=== PATIENT | female | born 1950 | race Caucasian/White ===

== ENCOUNTER 2022-04-18 13:46 | Outpatient (CLI) | payer MEDICARE, SELFPAY ==
[2022-04-18 14:03] LABS: Basophils Absolute Auto 0.1 K/mm3 (0.0-0.1); Eosinophils Absolute Auto 0.2 K/mm3 (0-0.3); Eosinophils Percent Auto 3.7 % (0-4.4); Hematocrit 35.5 % (37.0-47.0); Hemoglobin 11.3 g/dL (12.0-15.0); Immature Granulocyte Absolute 0.01 K/mm3 (0.00-0.031); Immature Granulocyte Percent A 0.2 % (0-0.5); Lymphocytes Percent Auto 23.1 % (18.3-44.2); Mean Corpuscular HGB Conc 31.8 g/dl (32-36); Mean Corpuscular Hemoglobin 31.2 pg (26-34); Mean Corpuscular Volume 98.1 fl (80-100); Mean Platelet Volume 10.7 fl (7.4-10.4); Monocytes Absolute Auto 0.4 K/mm3 (0.1-0.6); Monocytes Percent Auto 8.3 % (2.6-8.5); Neutrophils Absolute Auto 3.3 K/mm3 (1.3-6.7); Neutrophils Percent Auto 63.7 % (45.5-73.1); Platelet Count Result 187 k/mm3 (150-375); Red Blood Count 3.62 M/mm3 (4.2-5.4); Red Cell Distribution Width 12.5 % (11.5-14.5); White Blood Count 5.2 K/mm3 (4.5-10.0)
[2022-04-18 17:03] LABS: Iron 58 ug/dL (37-170)
[2022-04-18 17:05] LABS: Percent Iron Saturation 17 % (20-50)
[2022-04-18 19:03] LABS: Alanine Aminotransferase 16 U/L (6-35); Albumin Level 4.2 g/dL (3.5-5.1); Alkaline Phosphatase 96 U/L (38-126); Anion Gap 6 mmol/L (8-16); Aspartate Amino Transferase 22 U/L (14-36); Bilirubin,Total 0.9 mg/dL (0.2-1.3); Blood Urea Nitrogen 26 mg/dL (7-17); Calcium 9.2 mg/dL (8.4-10.2); Carbon Dioxide 29 mmol/L (22-30); Chloride 106 mmol/L (98-107); Estimated Glomerular Filt Rate 41; Glucose 139 mg/dL (65-110); Potassium 4.3 mmol/L (3.4-5.0); Sodium 141 mmol/L (137-145)
[2022-04-18 20:08] LABS: Folic Acid 10.6 ng/mL (2.76->20)
[2022-04-21 13:39] LABS: Methylmalonic Acid 188 nmol/L (87-318)
== END 2022-04-18 13:47 | disposition home or self-care (01) ==
LOC: ANHLAB 13:48
PROVIDERS: PCP Family Medicine; Visit Provider Internal Medicine Hematology & Oncology
DX: D64.9 Anemia, unspecified (principal)
CPT/HCPCS: 36415; 80053; 82607; 82728; 82746; 83540; 83550; 83921; 85025

== ENCOUNTER 2022-05-11 10:04 | Outpatient (CLI) | payer MEDICARE, SELFPAY ==
[2022-05-15 18:42] LABS: Intrinsic Factor Blocking Ab Negative (Negative)
== END 2022-05-11 10:05 | disposition home or self-care (01) ==
LOC: ANHLAB 10:12
PROVIDERS: PCP Family Medicine; Visit Provider Internal Medicine Hematology & Oncology
DX: D64.9 Anemia, unspecified (principal)
CPT/HCPCS: 36415; 83516; 86340

== ENCOUNTER 2024-04-24 13:28 | Emergency (ER) | payer MEDICARE, SELFPAY ==
--- OUTSIDE RECORDS SUMMARY | 2024-04-24 13:33 | XMS_ITS | Continuity of Care Document ---
Author Organization [employer] [facility] Address [address] [facility] [address] [place] [address] Phone Care Team Providers Care Lumber Handler Name Role Phone Margaret Willingham OD Unavailable Unavailable Allergies, Adverse Reactions, Alerts Substance Reaction Status Criticality MEPERIDINE HCL Active No Informatio n Sulfa (Sulfonamide Antibiotics) Active No Information Penicillins Active No Information amoxicillin Active No Information Medications Medication Instructions Dosage Effective Dates (start - stop) Status Comments Lantus U-100 Insulin 100 unit/mL subcutaneous solution inject by subcutaneous route as per insulin protocol 0.00 - Active lisinopril 20 mg tablet take 1 tablet by oral route every day 20 MG - Active Farxiga 5 mg tablet take 1 tablet by oral route every day in the morning 5 MG - Active B12 5,000 mcg-100 mcg sublingual lozenge - Active amlodipine 10 mg tablet take 1 tablet by oral route every day 10 MG - Active leflunomide 20 mg tablet take 1 tablet b y oral route every day 20 MG - Active Synthroid 137 mcg tablet take 1 tablet b y oral route every day 137 MCG - Active Humalog KwikPen U-200 Insulin 200 unit/mL (3 mL) subcutaneous inject by subcutaneous route per prescriber's instructions. Insulin dosing requires individualization. 0.00 - Active Ozempic 0.25 mg or 0.5 mg (2 mg/1.5 mL) subcutaneous pen injector inject (0.25MG) by subcutaneous route every week for 4 weeks , then inject 0.5 mg subcutaneously once weekly for 2 weeks - Active solifenacin 5 mg tablet take 1 tablet by oral route 2 times every day 5 MG - Active sertraline 100 mg tablet take 1 tablet b y oral route every day 100 MG - Active Multi Vitamin BUCCAL CAPSULE take 1 capsule daily - Active Vitamin D3 25 mcg (1,000 unit) tablet take 1 by oral route 2 times every day 1 - Active Calcium 500 + D 500 mg (1,250 mg)-200 unit tablet take 1 by oral route every day 1 - Active iron ER 159 mg (45 mg iron) tablet,extended release take 1 tablet by oral route every week 1 tablet - Active Tylenol Arthritis Pain 650 mg tablet,extended release take 2 tablet by oral route as needed for pain - Active PreserVision AREDS-2 250 mg-200 unit-40 mg-1 mg capsule take 1 by oral route 2 times every day 1 - Active atorvastatin 40 mg tablet take 1 tablet by oral route every day 40 MG - Active Lyrica 50 mg capsule take 1 capsule by oral route 2 times every day 50 MG - No Longer Active propranolol 40 mg tablet take 1 tablet b y oral route 3 times every day 40 MG - No Longer Active hydrochlorothiazide 25 mg tablet take 1 tablet by oral route every 2 days 25 MG - No Longer Active alprazolam 0.5 mg tablet take 1 tablet b y oral route every day 0.5 MG - No Longer Active diclofenac sodium 75 mg tablet,delayed release take 2 by oral route every day 2 - No Longer Active dicyclomine 10 mg capsule take 1 capsule by oral route 3 times every day 10 MG - No Longer Active Humulin 70/30 U-100 Insulin KwikPen 100 unit/mL subcutaneous inject 1 unit by subcutaneous route every day as per insulin protocol 1 unit - No Longer Active Procedures Procedure Date Corneal Pachymetry Fundus Photography W/ Report No Charge Refraction Office/outpatient Visit, Est No Charge Optomap Fundus Photos 023 SCODI, Retina Eye Exam & Treatment Fundus Photography W/ Report Eye Exam & Treatment Fundus Photography W/ Report Eye Exam & Treatment Fundus Photography W/ Report Eye Exam & Treatment No Charge Refraction No Charge GDX Retina Fundus Photography W/ Report Eye Exam & Treatment Post-op Follow-up Visit No Charge GDX Retina No Charge Refraction Fundus Photography W/ Report After Cataract Laser Surgery Office/outpatient Visit, Est Fundus Photography W/ Report Refraction Eye Exam & Treatment No Charge Refraction Post-op Follow-up Visit Fundus Photography W/ Report No Charge Refraction After Cataract Laser Surgery Office/outpatient Visit, Est Fundus Photography W/ Report Office/outpatient Visit, Est No Charge Refraction Post-op Follow-up Visit Post-op Follow-up Visit Remove Cataract, Insert Lens No Charge Refraction Post-op Follow-up Visit Post-op Follow-up Visit Remove Cataract, Insert Lens No Charge Refraction Fundus Photography W/ Report IOLMaster No Charge Orbscan IOLMaster Eye Exam & Treatment Fundus Photography W/ Report Office/outpatient Visit, Est Refraction Fundus Photography W/ Report Eye Exam & Treatment Office/outpatient Visit, Est Fundus Photography W/ Report Eye Exam & Treatment Fundus Photography W/ Report Refraction Eye Exam & Treatment Fundus Photography W/ Report Eye Exam & Treatment Eye Exam & Treatment Fundus Photography W/ Report Refraction Eye Exam Established Pt Eye Exam & Treatment Fundus Photography W/ Report CL Replacement - Amrit Other 9 Post-op Follow-up Visit Contact Lens Fitting Eye Exam & Treatment Eye Exam & Treatment Fundus Photography W/ Report Advance Directives Directive Yes / No Effective Date File Name Other Directive No N/A N/A WARNING:The information contained in this section is historical and is provided for information only and does not constitute a legal document or any assurance that the information is still accurate. Please verify the information with the reyes of the legal document before using it for clinical purposes. Encounters Encounter Description Practice Location Reason(s) For Visit Diagnoses Date Provider Providers Copied on Encounter Office/outpa tient Visit, Est [facility], [id number] [address], [place], [place], [address], [place] tel:[phone] SEC Chad REYES Professional diabetic eye exam (chief complaint) Type 2 diab with mild nonp rtnop without macular edema, biPresence of intraocular lensEndothel ial corneal dystrophy of both eyes 9202 4 Maulik OD Margaret. [facility] [address], [address], [place], [place], [address], [place]. tel:[phone] Specialist: Mor Max, [address], [place], [address]. tel:[phone] alist: Summer Wilson MD, [address], [place], [address]. tel:[phone] ring Provider: Justice Rodgers, [address], [place], [address]. tel:[phone] [facility] [facility], [address] [address], [place], [place], [address], [place] tel:[phone] SEC Chad ERIC Professional Complete Exam (chief complaint) Type 2 diab with mild nonp rtnop without mclr edema, l eyeType 2 diab with mild nonp rtnop without mclr edema, r eyePresence of intraocular lens 3 Sahu Daryl. [address] [facility], [place], [place], [address], [place]. tel:[phone] Specialist: Trista Max MD, [address] [place], [address]. tel:[phone] alist: Summer Wilson MD, [address], [place], [address]. tel:[phone] Provider: Laura Crawford MD, [address], [place], [address]. tel:[phone] ring Provider: Justice Rodgers, [address], [place], [address]. tel:[phone] [facility], [address] [address], [place], [place], [address], [place] tel:[phone] SEC Van Tassellshannon Hidalgo Complete Exam (chief complaint) Type 2 diab with mild nonp rtnop without macular edema, biPresence of intraocular lens 2 Shane Rendon. [address], [address], [place], [place], [address], [place]. tel:[phone] Laura Crawford MD.Summer Wilson MD.Speciali st: Taylor Roberts DO, [address] [facility], [place], [address]. tel:[phone] Provider: Laura Crawford MD, [address], [place], [address]. tel:[phone] ring Provider: Justice Rodgers, [address] [place] [address] [facility] [address], [place], [address]. tel:[phone] [facility], [address] [place] [address] [address], [place], [place], [address], tel:[phone] SEC Pallavi N Lindbergh Complete Exam (chief complaint) Type 2 diab with mild nonp rtnop without macular edema, biPresence of intraocular lens Nov-1 2-202 1 Shane Rendon. [address] [place] [address] [facility], [address], [place], [place], [address], [place]. tel:[phone] Specialist: Laura Crawford MD, [address], [place], [address]. tel:[phone] alist: Summer Wilson MD, [facility] [address], [place], [address]. tel:[phone] Provider: Laura Crawford MD, [address], [place], [address]. tel:[phone] ring Provider: Justice Rodgers, [address] [place] [address] [address], [place], [address]. 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 [address] [place] [address], [address], [place], [place], [address], [place]. tel:[phone] Specialist: Laura Crawford MD, [address], [place], [address]. tel:[phone] alist: Summer Wilson MD, [address], [place], [address]. tel:[phone] Provider: Laura Crawford MD, [address], [place], [address]. tel:[phone] ring Provider: Justice Rodgers, [address] [place] [address] [address], [place], [address]. tel:[phone] [facility], [address] [place] [address] [address], [place], [place], [address], [place] tel:[phone] SEC Chad REYES Professional No Information 0 Luis Alberto Brito. [address] [facility], [address], [place], [place], [address], [place]. tel:[phone] Specialist: Laura Crawford MD, [address] [facility] [address], [place], [address]. tel:[phone] alist: Summer Wilson MD, [address], [place], [address]. tel:[phone] [facility], [address] [place] [address] [address], [place], [place], [address], [place] tel:[phone] SEC Chad REYES Professional Complete DM Exam (chief complaint) Type 2 diab with mild nonp rtnop with macular edema, l eyeType 2 diab with mild nonp rtnop without mclr edema, r eyeMeibomian gland dysfnct right eye, upper and lower eyelidsMeibo nikolai gland dysfnct left eye, upper and lower eyelidsPrese nce of intraocular lens 0 Shane Rendon. [address] [place] [address], [address], [place], [place], [address], [place]. tel:[phone] Laura Crawford MD.Speciali st: Taylor Roberts DO, [address] [facility], [place], [address]. tel:[phone] Provider: Laura Crawford MD, [address], [place], [address]. tel:[phone] ring Provider: Justice Rodgers, [facility] [address], [place], [address]. tel:[phone] [facility], [facility] [employer] [address], [place], [place], [address], [place] [phone] SEC Chad REYES Professional 3 week s/p YAG PC (chief complaint) Post-op cataract surgery right eye 9 Neil Blackmon. [facility], 6th Floor, [place], [address], [place]. tel:[phone] Referring Provider: Justice Rodgers, [facility] [address], [place], [address]. [phone] Office/outpa tient Visit, [facility] [employer] [address], [place], [place], [address], [place] [phone] SEC Chad REYES Professional PCF (chief complaint) Other secondary cataract, right eyePresence of intraocular lensType 2 diab with mild nonp rtnop without mclr edema, l eye 9 Shane Rendon. [facility] [address], [address], [place], [place], [address], [place]. tel:[phone] Laura Crawford MD.Speciali st: Taylor Roberts DO, [address], [place], [address]. tel:[phone] ring Provider: Justice Rodgers, [facility] [address], [place], [address]. tel:[phone] [facility], [facility] [employer] [address], [place], [place], [address], [place] [phone] SEC Chad REYES Professional Diabetic eye exam (chief complaint) Type 2 diab with mild nonp rtnop without mclr edema, l eyeOther secondary cataract, right eyePresence of intraocular lens 9 Shane Rendon. [facility] [address], [address], [place], [place], [address], . tel:[phone] Specialist: Laura Crawford MD, [address], [place], [address]. tel:[phone] Provider: Laura Crawford MD, [address], [place], [address]. tel:[phone] ring Provider: Justice Rodgers, [facility] [address], [place], [address]. tel:[phone] [facility], [facility] [address], [place], [place], [address], tel:[phone] SEC Chad REYES Professional Post-Op (chief complaint) Surgery follow-up examination 8 Luis Alberto Brito. [address] [facility], [address], [place], [place], [address], [place]. tel:[phone] Referring Provider: Justice Rodgers, [facility] [address] [facility] [address], [place], [address]. tel:[phone] Office/outpa tient Visit, Est [facility], [facility] [address], [place], [place], [address], [place] tel:[phone] HOMA REYES Professional Blurry/decre ased vision (chief complaint) Other secondary cataract, left eyePresence of intraocular lensType 2 diab with mild nonp rtnop without macular edema, bi 8 Shane Rendon. [facility] [address] [facility], [address], [place], [place], [address], . tel:[phone] Other Provider: Laura Crawford MD, [address], [place], [address]. tel:[phone] ring Provider: Justice Rodgers, [facility] [address], [place], [address]. tel:[phone] [facility], [address] [address], [place], [place], [address], [place] [phone] SEC Chad REYES Professional No Information May-0 8 Shane Rendon. [facility] [address], [address], [place], [place], [address], [place]. tel:[phone] Office/outpa tient Visit, [facility] [address], [place], [place], [address], [place] tel:[phone] SEC Pallavi Landeros 6 month DFE (chief complaint) Type 2 diab with mild nonp rtnop without macular edema, biOther secondary cataract, left eye Dec- 7 Shane Rendon. [facility] [address], [address], [place], [place], [address], [place]. tel:[phone] Other Provider: Laura Crawford MD, [address], [place], [address]. tel:[phone] ring Provider: Justice Rodgers, [facility] [address], [place], [address]. tel:[phone] [facility], [facility] [employer] [address], [place], [place], [address], [place] tel:[phone] SEC Pallavi Landeros 2 wk PC IOL PO (chief complaint) Post-op cataract surgery left eye Trey- 7 Flaquita Huber. [address] [facility], [address], [place], [place], [address], [place]. tel:[phone] Referring Provider: Justice Rodgers, [facility] [address], [place], [address]. tel:[phone] [facility], [address] [place] [address] [address], [place], [place], [address], tel:[phone] SEC Van Tassell N Lindbergh 1 day PO (chief complaint) No Information Aug-0 7 Sams Mayo. [address] [facility], [address], [place], [place], [address], . tel:[phone] Referring Provider: Justice Rodgers, [address] [place] [address] [facility] [address], [place], [address]. tel:[phone] [facility], [address] [place] [address] [address], [place], [place], [address], tel:[phone] [facility] No Information 0 7 Shane Rendon. [address] [place] [address] [facility], [address], [place], [place], [address], . tel:[phone] Referring Provider: Justice Rodgers, [address] [place] [address] [facility] [address], [place], [address]. [phone] [facility], [address] [place] [address] [address], [place], [place], [address], [phone] SEC Pallavi N Anglebergh 2 wk PC IOL PO (chief complaint) No Information 7 Sams Mayo. [address] [facility], [address], [place], [place], [address], . tel:[phone] Referring Provider: Justice Rodgers, [address] [place] [address] [facility] [address], [place], [address]. tel:[phone] [facility], [address] [place] [address] [address], [place], [place], [address], [phone] SEC Van Tassell N Lindbergh F/u exam, postop (chief complaint) No Information 7 Sams Mayo. [address] [facility], [address], [place], [place], [address], [place]. tel:[phone] Referring Provider: Justice Rodgers, [facility] [employer] [address], [place], [address]. [phone] [facility], [address] [place] [address] [address], [place], [place], [address], [place] tel:[phone] [facility] No Information 7 Shane Rendon. [facility] [employer], [address], [place], [place], [address], [place]. tel:[phone] Referring Provider: Justice Rodgers, [facility] [address], [place], [address]. [phone] [facility], [address] [place] [address] [address], [place], [place], [address], [place] tel:[phone] SEC Pallavi Landeros Complete Exam (chief complaint) No Information 0 7 Shane Rendon. [facility] [address], [address], [place], [place], [address], [place]. tel:[phone] Other Provider: Laura Crawford MD, [address], [place], [address]. tel:[phone] ring Provider: Justice Rodgers, [facility] [address], [place], [address]. [phone] Office/outpa tient Visit, Est [facility], [facility] [address], [place], [place], [address], [place] [phone] SEC Pallavi Landeros SANDWICH ARTIST check OU (chief complaint) No Information 0-201 6 Shane Rendon. [facility] [employer], [address], [place], [place], [address], [place]. tel:[phone] Other Provider: Laura Crawford MD, [address] [facility] [address], [place], [address]. tel:[phone] ring Provider: Justice Rodgers, [facility] [address], [place], [address]. [phone] [employer] [facility], [facility] [employer] [address], [place], [place], [address], [place] [phone] SEC Pallavi Landeros Yearly-Diabe tic (chief complaint) No Information Apr-0 4-201 6 Shane Rendon. [facility] [address], [address], [place], [place], [address], [place]. tel:[phone] Specialist: Taylor Roberts DO, [address] [facility], [place], [address]. tel:[phone] ring Provider: Justice Rodgers, [facility] [address], [place], [address]. [phone] Office/outpa tient Visit, [facility] [employer] [facility], [facility] [address], [place], [place], [address], [place] [phone] SEC Pallavi Landeros Difficulty reading (chief complaint) No Information Mar-3 0-201 5 Shane Rendon. [facility] [address], [address], [place], [place], [address], [place]. tel:[phone] Referring Provider: Justice Rodgers, [facility] [address], [place], [address]. [phone] [employer] [facility], [facility] [address], [place], [place], [address], [place] tel:[phone] SEC Pallavi Landeros Annual Diabetic Exam (chief complaint) No Information Sep-2 9-201 4 Shane Rendon. [facility] [address], [address], [place], [place], [address], [place]. tel:[phone] Referring Provider: Justice Rodgers, [facility] [address], [place], [address]. tel:[phone] [facility], [address] [place] [address] [address], [place], [place], [address], [place] [phone] SEC Pallavi N Lindbergh eyes doing well, without complaint. (chief complaint) No Information 3 Shane Rendon. [facility] [address], [address], [place], [place], [address], [place]. tel:[phone] Referring Provider: Justice Rodgers, [facility] [address], [place], [address]. [phone] [employer] [facility], [facility] [employer] [address], [place], [place], [address], tel:[phone] SEC Van Tassell N Lindbergh Diabetes Examination (chief complaint) No Information 2201 2 Shane Rendon. [facility] [address], [address], [place], [place], [address], [place]. tel:[phone] [employer] [facility], [address] [address], [place], [place], [address], [place] tel:[phone] SEC Van Tassell N Lindbergh No Information 0-201 1 Shane Rendon. [facility] [address], [address], [place], [place], [address], [place]. tel:[phone] [facility], [facility] [employer] [address], [place], [place], [address], [place] tel:[phone] SEC Pallavi N Lindbergh No Information 3-201 1 Shane Rendon. [facility] [address], [address], [place], [place], [address], [place]. tel:[phone] Referring Provider: Justice Rodgers, [address], [place], [address]. tel:[phone] [facility], [address], [place], [place], [address], [place] tel:[phone] SEC Pallavi N Lindbergh No Information 0 Shane Rendon. [address], [address], [place], [place], [address], [place]. tel:[phone] [facility], [address], [place], [place], [address], [place] tel:[phone] SEC Pallavi N Lindbergh No Information 9 Shane Rendon. [address], [address], [place], [place], [address], [place]. tel:[phone] Referring Provider: Justice Rodgers, [address] [place] [address], [place], [address]. tel:[phone] [facility], [address], [place], [place], [address], [place] tel:[phone] SEC Van Tassell N Lindbergh No Information 9 [facility] . [address] [facility], [address] [place] [address], [id number], . tel:[phone] Referring Provider: Mayo Sweeney, [address] [facility] [address], [place], [address]. tel:[phone] lting Provider: Shannan Jewell, [address] [facility], [place], [address]. tel:[phone] [facility], [address], [place], [place], [id number], [place] [phone] SEC Pallavi N [place] No Information 9 Flaquita Huber. [address] [facility], [address], [place], [place], [id number], . tel:[phone] [facility], [address], [place], [place], [id number], tel:[phone] SEC [place] No Information 9 Flaquita Huber. [address] [facility], [address], [place], [place], [id number], . tel:[phone] [facility], [address] [place] [address] [address], [place], [place], [id number], tel:[phone] SEC [place] No Information 8 Shane Rendon. [address] [place] [address] [facility], [address], [place], [place], [id number], . tel:[phone] [facility], [address], [place], [place], [id number], tel:[phone] SEC Pallavi N [place] No Information 7 Shane Rendon. [address] [place] [address] [facility], [address], [place], [place], [address], . tel:[phone] Referring Provider: Justice Rodgers, [address] [place] [address] [facility] [address], [place], [address]. [phone] Family History Family Member Type Diagnosis Age At Onset Father Problem (finding) diabetes melli tus in first degree relative Problem (finding) Mother Problem (finding) Retinal Disease Payers Payer name Insurance type Covered constitution party ID Authoriza tipoonam(s) Medicare [facility] SAULT [id number] [facility] CI [id number] Social History Type Description Quantity Date Captured Comments Alcohol Use Details Caffeine Use Details > 32oz per day Tobacco Use Status Current non-smoker Smoking Status Never smoker Non-Smoking Tobacco Use Details : No Details Available : No Details Available Sex Female Chief Complaint And Reason For Visit From encounter dated '09/10/2023 15:00'. diabetic eye exam (chief complaint). Description: The 72 year old patient presents for evaluation of diabetic eye exam in the right eye and left eye. Pt is IDDM II followed by Dr. Max. Pt 's last HA1C was 6.2. Pt. states she notices blurry spot in Left eye that does not seem to move. Pt. also has lots of floaters. Pt. does not have a PCP and is in process of looking for one. Pt. states no ocular discomfort. Reason For Referral Reason For Referral No Information Plan Of Treatment Date Type Action Status Patient Education Type 2 Diabetes: Care I nstructions completed Patient Education Type 2 Diabetes: Care I nstructions completed Patient Education Type 2 Diabetes: Care I nstructions completed Patient Education Diabetic Retinopathy: C are Instructio~ completed Patient Education Learning About YAG Lase r Capsulotomy completed History Of Present Illness Encounter Date Complaint History Of Prese nt Illness diabetic eye exam The 72 year ol d patient presents for evaluation of diabetic eye exam in the right eye and left eye. Pt is IDDM II followed by Dr. Max. Pt 's last HA1C was 6.2. Pt. states she notices blurry spot in Left eye that does not seem to move. Pt. also has lots of floaters. Pt. does not have a PCP and is in process of looking for one. Pt. states no ocular discomfort. Complete Exam The 71 year old patient presents for evaluation of Complete Exam in the right eye and left eye. Patient states she has a FBS sensation in her left eye. Patient is a diab, BS checked today @ 150, a1c 5.5, and Dr. Bennett treats her diab. Complete Exam The 71 year old patient presents for evaluation of Complete Exam in the right eye and left eye. Pt states no changes or complaints with OU, vision is stable. Pt is IDDM II with a BS today of 95, and A1C 6 months ago of 6.2, managed by porter Crawford. Pt is not taking gtts currently. Complete Exam The 70 year old female presents for evaluation of Complete Exam in the right eye and left eye. Hx of PC IOL OU, YAG PC OU, DR OU and MGD OU. Pt reports vision is stable distance and near sine last visit. Pt states she has occasional floaters, no changes. Wears +2.50 OTC readers. IDDM Type II BS 155 this am A1c 6.2 4-5 mo ago, followed by Dr. Crawford. Pt takes PreserVision 1 PO BID. Complete Exam The 69 year old female presents for evaluation of Complete Exam in the right eye and left eye. Hx of PC IOL OU, Yag PC OU, and DR OU. Pt is IDDM II with and A1c of7.1. Pt states vision is clear and stable OU at distance and near x 10 mos. Complete DM Exam The 68 year old female presents for evaluation of Complete DM Exam in the right eye and left eye. Hx PCIOL OU s/p Yag PC OU, NPDR OU. DM2, last A1c 6.8, last tested 4-5 months ago, BS 200 as of this morning, followed by Dr. Crawford. Pt reports foggy vision OS, like she needs a Yag PC again. She had Yag PC OS in 07/2017. Pt reports glare while driving at night. Pt reports just using OTC readers for near. 3 week s/p YAG PC The 67 year ol d female presents for evaluation of 3 week s/p YAG PC in the right eye. Patient states VA is much clearer since the laser. Patient declines an rx for glasses. PCF The 67 year old female presents for evaluation of PCF in the right eye. Hx of PCIOL OU, mild DR OU, PCF OD, and YAG PC OS. Pt is IDDM II with an A1c of 7.2. Pt states VA blurry, like looking through a fog, having to get closer to street signs to see them clearly, difficult to see TV, and it's difficult to see small print. DVA and NVA gradual decrease OD x 4 mos. Diabetic eye exam The 67 year ol d female presents for evaluation of Diabetic eye exam in the right eye and left eye. Hx of PCIOL OU, mild diab retinopathy OU, and YAG PC OS. Patient states she still has some blurry VA in the left eye. Patient is a Type 2 diab since 1994, Insulin dependant for 5 years, BS checked this am @ 78, A1c 6.3, and Dr. Crawford treats her diab. Patient taking AREDS 2 prescribed by pcp. Post-Op The 66 year old female presents for a 1 week post YAG PC OS. Patient states vision is better OS and c/o a floater OS. Blurry/decreased vision The 66 y ear old female presents for a YAG PC evaluation OS. Patient c/o blurry/decreased OS x 2 months. Patient states vision OS just isn't as good. Patient is a Type II diabetic and BS was 233 this am. 6 month DFE The 66 year old female presents for 6 month DFE in the right eye and left eye. Hx of PCIOL OU, mild NPDR. Pt is IDDM type II, BSL 112 this morning, A1C is unknown, Enrolled Nurse is Dr. Crawford. Pt would like notes sent to PCP as well. Pt states her distance vision OU seems to be doing okay, intermittent blurriness when eyes are dry, AT's help, wears OTC for reading. Pt uses Systane PRN OU. 2 wk PC IOL PO The 65 year old female presents for 2 wk PC IOL PO in the left eye. Pt using PF1% OS bid and Diclo OS tid. Pt states no VA, pain, or discomfort complaints OU x 2 wks. 1 day PO The 65 year old female presents for 1 day PO PCIOL in the left eye. Hx PCIOL OD. Pt states her vision is doing fine, no pain/discomfort. PT using Pred QID OS, Poly OS QID, Diclo TID OS. Pt given and understands PO instructions. 2 wk PC IOL PO The 65 year old female presents for 2 wk PC IOL PO in the right eye. Pt is IDDM II with and A1c of 6.5. Pt using PF1% bid, and Diclo tid. Pt states DV is very good, has had to purchase OTC readers for up close. Pt states difficult to drive at night due to headlight glare, difficult to see TV, and difficult to see small print. DV and NV gradual decrease OS x 7 mos. F/u exam, postop 1 day PO PCL OD , doing well, no pain.Patient instructed to use Poly and Pred qid OD and diclofenac tid OD. Complete Exam The 65 year old female presents for Complete Exam in the right eye and left eye. HX Cataracts OU, Diabetic Retinopathy, DMII ID, last BSL/A1C 6.5. Pt states her vision has decreased since last visit. Glare is very bothersome and she has difficulty driving due to her vision. She also has difficulty driving on rainy days. Pt denies using any eye drops. PT denies pain/discomfort. SANDWICH ARTIST check OU The 65 year old female presents for a 6 month SANDWICH ARTIST check OU, patient is type 2 diabetic, is insulin dependant. Patient denies any pain or discomfort at this time. States v/a is stable, no gtts are used at this time.Dr. Laura Crawford is pt's Enrolled Nurse.Address: [facility] [address] [place], [place] [address]Mozfp: Yearly-Diabetic The 64 year old female presents for yearly Diabetic Eye Exam. Patient has a history of Diabetes Type 2 with SANDWICH ARTIST, and Cataracts OU. Patient states her vision is about the same. Patient says she hasn't noticed any new changes or complaints.Patient wants a new prescription for glasses. Patient denies using any eye drops daily. Patient says her BS this morning was 145 and her last A1C was 6.7% a month ago. Patient has been a diabetic for 22 years. Patient is IDDM. Difficulty reading Patient prese nts for a 6 month diabetic check. Patient denies any changes in vision. Patient now uses a CPAP machine. BS was 145 this am and last A1C 5.7 2 months ago. Annual Diabetic Exam The 63 year old female presents for Annual Diabetic Exam. Patient states her and her new Enrolled Nurse Laura Crawford M.D. are trying to get her Diabetes under better control. Patient states that her vision seems pretty stable, but thinks it may be time for new glasses. Patient denies the use of eye drops.New Enrolled Nurse Address: [facility] [address], [address] [place], [place]. [address]Pvcya: [phone] / Functional Status Date Functional Assessmen t No Information Instructions Date Instruction Additional Infor christian Impression/Plan Impression/Plan Impression/Plan Impression/Plan Impression/Plan Impression/Plan 6mo complete or sooner prn Relat ed to Post-op cataract surgery right eye Impression/Plan Related to Post- op cataract surgery right eye Impression/Plan Impression/Plan Impression/Plan Impression/Plan Follow up - 6 months pcf eval/bd r check Impression/Plan - Di abetes type II: mild background diabetic retinopathy, no signs of neovascularization noted. No treatment necessary at this time. Patient was instructed to monitor vision for sudden changes and to call if visual changes noted. Discussed ocular and systemic benefits of blood sugar control. Letter generated and sent to Dr. Roberts and Dr. Crawford. PCF discussed along with signs/symptoms of progression explained and YAG PC for treatment. Pt aware treatment is not indicated at this time, but rec returning sooner if vision worsens. Repeat optomap on return visit. Type 2 diab with mil d nonp rtnop without macular edema, bi - Communication to PCP/Specialist Related to Type 2 diab with mild nonp rtnop without macular edema, bi Post-op cataract ritesh bridger left eye - Medication use reviewed Related to Post-op cataract surgery left eye Post-op cataract ritesh bridger left eye - Post op instructions reviewed and understood by patient Related to Post-op cataract surgery left eye Impression/Plan - Co ntinue tapering drops as instructed.Discussed PCF and YAG PC. Return in 6 months DFE. Related to Post-op cataract surgery left eye Impression/Plan - Po st-op instructions given. Instructed to begin Poly trim and Prednisolone qid and diclofenac tid in operative eye today.Return in 2 weeks. Related to Post-op cataract surgery left eye Post-op cataract ritesh bridger left eye - Post op instructions reviewed and understood by patient Related to Post-op cataract surgery left eye Post-op cataract ritesh bridger left eye - Medication use reviewed Related to Post-op cataract surgery left eye Impression/Plan - Gi ovidio samples of Blink drops.Continue tapering drops as scheduled. Schedule Left eye for cataract surgery. Post-op cataract ritesh bridger right eye - Post op instructions reviewed and understood by patient Related to Post-op cataract surgery right eye Post-op cataract ritesh bridger right eye - Medication use reviewed Related to Post-op cataract surgery right eye Post-op cataract ritesh bridger right eye - Medication use reviewed Related to Post-op cataract surgery right eye Post-op cataract ritesh bridger right eye - Post op instructions reviewed and understood by patient Related to Post-op cataract surgery right eye Impression/Plan - Ca taract presence is the cause of the patients visual complaints and progression without treatment discussed. Discussed all risks, benefits, procedures and recovery. Vision will not significantly improve with a change in glasses and we recommend not changing. The patient understands this is an elective procedure and may proceed when desired. The patients questions were answered and demonstrates understanding of our discussion. Patient desires to have surgery, recommend phacoemulsification with intraocular lens. Standard monofocal IOL understood and the need for specs for at least near vision following surgery is understood. Explained the accuracy and effectiveness of any lens implant cannot be guaranteed. IOL master, Pentacam and cataract questionnaire needed prior to scheduling. Diabetes type II: mild background diabetic retinopathy, no signs of neovascularization noted. No treatment necessary at this time. Patient was instructed to monitor vision for sudden changes and to call if visual changes noted. Discussed ocular and systemic benefits of blood sugar control. Letter generated and sent to Dr. Roberts and Dr Crawford. She is currently working with her doctors regarding her BP, Potassium levels and DM+ Sulfa allergy Combined forms of ag e-related cataract, right eye - Surgery advised; risks, benefits, alternatives discussed. Related to Combined forms of age-related cataract, right eye Follow up - sched ce od 1st standard monofocal Oct-10-2016 Type 2 diab with mil d nonp rtnop without macular edema, bi - Rec good blood sugar control Related to Type 2 diab with mild nonp rtnop without macular edema, bi Type 2 diab with mil d nonp rtnop without macular edema, bi - Letter sent to PCP/Specialist Related to Type 2 diab with mild nonp rtnop without macular edema, bi Impression/Plan - Di abetes type II: mild background diabetic retinopathy, no signs of neovascularization noted. No treatment necessary at this time. Patient was instructed to monitor vision for sudden changes and to call if visual changes noted. Discussed ocular and systemic benefits of blood sugar control. Discussed visual fluctuations associated with uncontrolled blood sugars. Letter generated and sent to Dr. Roberts and Dr. Crawford. She states her blood sugars has been uncontrolled. Cataract presence discussed and symptoms of progression explained, not visually significant to patient. Pt was instructed to return to the office sooner if vision worsens. Pt needs BAT and BCVA on return prior to dilation. Follow up - 6 months complete exam/ SANDWICH ARTIST check Impression/Plan - Di abetes type II: mild background diabetic retinopathy, no signs of neovascularization noted. No treatment necessary at this time. Patient was instructed to monitor vision for sudden changes and to call if visual changes noted. Discussed ocular and systemic benefits of blood sugar control. Explained if this progresses referral to [place] would be recommended. Letter generated and sent to Dr. Roberts and Dr. Crawford. Spec Rx given to pt. Follow up - 6 months SANDWICH ARTIST follow up Type 2 diab w mild n onprlf diabetic rtnop w/o macular edema - Letter sent to PCP/Specialist Related to Type 2 diab w mild nonprlf diabetic rtnop w/o macular edema - 1 yr complete exam cat check/SANDWICH ARTIST follow up Related to See list of assessments above - OU: Discussed diag nosis in detail with patient. No treatment is required at this time. Will continue to observe condition and or symptoms. Call if VA worsens. Emphasized blood sugar control. Letter generated and sent to Dr. Crawford. Related to See list of assessments above Diabetes (high blood sugar disease) affecting the eye - Communication to PCP/Specialist today Related to Diabetes (high blood sugar disease) affecting the eye - 6 months follow up with repeat optomap Related to See list of assessments above - OU: Discussed diag nosis in detail with patient. No treatment is required at this time. Will continue to observe condition and or symptoms. Call if VA worsens. Emphasized blood sugar control. Educational materials provided:about today's exam. Letter dictated to Dr. Crawford. Discussed cataract progression and will monitor. Related to See list of assessments above Cataract, Nuclear Sc lerosis, OU - established, stable - will continue to monitor - discussed progression with pt, monitor Related to Cataract, Nuclear Sclerosis - 6 months dm check Related to B ackground Diabetic Retinopathy Background Diabetic Retinopathy, OS, c/w NPDR, worsening from last visit, suspicious area of neovascularization at the edge of the ON, lower temporal quadrant, No NPDR OD - Discussed progression with pt. Pt understands the importance of good blood sugar and blood pressure control. [facility] Roberts, Related to Background Diabetic Retinopathy - 1 year complete DM exam Relate d to Diabetes Type II Diabetes Type II, do t hemorrages OS- Will monitor - Discussed with pt. No treatment at this time. will monitor Related to Diabetes Type II Cataract, Nuclear Sc lerosis, OU - vision not affected - will continue to monitor - Cataracts accounts for pt's complaints. No treatment currently recommended, patient will monitor vision changes and contact us with any decrease in vision. pt understands cat very small Related to Cataract, Nuclear Sclerosis Assessments Type Assessment Date assessment Type 2 diab with mild nonp rtnop without macular edema, bi assessment Presence of intraocular lens Sep assessment Endothelial corneal dystrophy of both eyes Patient Care Teams Name Effective Dates (start - stop) Status Members No Information
[2024-04-24 13:36] VITALS: BP 153/50; PULSE 91; RESP 20; TEMP 37.3; O2SAT 96
--- OUTSIDE RECORDS SUMMARY | 2024-04-24 13:36 | XMS_ITS | Referral Summary ---
Author Organization [facility] Address [address] [place] [address] Care Team Providers Care Ceramist Name Role Phone Booker Roberts DO Primary Care Provider Liam Clifford DO Unavailable Edwar Donovan MD Unavailable [phone] Source Comments [facility],non-owned Affiliates and Associated Physician Practices is amultiple site organization consisting of ambulatory clinics and hospital sitesin [place], [place], [place] and [place]. This disclosure is being madepursuant to the Care Everywhere program and may not contain all information available regarding this patient. Last updated 17.[facility] Allergies Active Allergy Reactions Criticality Noted Date Comments Meperidine 02/10/2014 Penicillins 02/04/2014 Sulfa Drugs 02/04/2014 Medications * Be aware that medications may not be up to date on this document. Alwaysverify current medications with the patient. Medication Sig Dispensed Refills Start Date End Date Status Insulin Isophane & Regular (HUMULIN 70/30 SC) Inject subcutaneously. Ac tive metformin ER 24hr (GLUCOPHAGE XR) 500MG tablet Take 500 mg by mouth daily with dinner. Active LORAZEPAM PO Take 1 mg by mouth at bedtime. Active cyanocobalamin (VITAMIN B-12) injection Inject 1,000 mg into muscle every 7 days. Active ferrous sulfate 325 (65 FE) MG tablet Take 325 mg by mouth daily with breakfast. Active magnesium 500 MG TABS tablet Take 500 mg by mouth once daily. Active multivitamin daily (THERAGRAN) tablet Take 1 Tab by mouth daily with food. Active vitamin D, cholecalciferol, 2000 UNITS tablet Take 2,000 Units by mouth once daily. Active ONETOUCH ULTRA TEST STRIPS test strip 05/19/2014 Active simvastatin (ZOCOR) 80 MG tablet 04/05/2014 Active Insulin Aspart (NOVOLOG PENFILL SC) Inject 2 Units subcutaneously Active Phendimetrazine Tartrate 105 MG CP24 Take 105 mg by mouth Acti ve TRULICITY 1.5 MG/0.5ML injection 1.5 mg every 7 days 10/09/2015 Active HUMULIN N KWIKPEN pen 09/19/2015 Active levothyroxine (SYNTHROID) 125 MCG tablet Take 1 Tab by mouth once daily 09/09/2015 Active escitalopram (LEXAPRO) 20 MG tablet Take 30 mg by mouth once daily 09/09/2015 Active omeprazole (PRILOSEC) 40 MG capsule Take 1 Cap by mouth 2 times daily 09/26/2015 Active hyoscyamine CR 12hr (LEVBID) 0.375 MG tablet Take 0.375 mg by mouth 2 times daily Active dicyclomine (BENTYL) 10 MG capsule Take 10 mg by mouth 4 times daily Active losartan (COZAAR) 50 MG tablet Take 50 mg by mouth once daily Active diclofenac sodium XR 24hr (VOLTAREN XR) 100 MG tablet Take 100 mg by mouth every Saturday, Saturday & Saturday Active oxybutynin (DITROPAN) 5 MG tablet Take 5 mg by mouth 3 times daily Active propranolol (INDERAL) 40 MG tablet Take 40 mg by mouth every 24 hours Active Active Problems Problem Noted Date Diagnosed Date Pulmonary infiltrate present on computed tomogra phy 12/24/2015 Restrictive lung disease 12/08/2015 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 Chronic cough 12/07/2015 Gastroesophageal reflux disease without esophagi tis 12/07/2015 Type 2 diabetes mellitus wit h other diabetic kidney complication 11/16/2015 Morbid (severe) obesity due to excess calories 1 Right shoulder tendonitis 11/01/2014 Follow-up examination, follo wing right AC reconstruction on 02-23-14 03/02/2014 Acromioclavicular joint arthritis 02/10/2014 Obstructive sleep apnea 01/07/2014 Myelodysplastic syndrome 10/28/2008 Other vitamin B12 deficiency anemia 10/28/2008 Overview (06/02/2016): IMO Update 06/02/2016 Social History Tobacco Use Types Packs/Day Years Used Date Smoking Tobacco: Never Smokeless Tobacco: Never Alcohol Use Standard Drinks/Week Comments No 0 (1 standard drink = 0.6 oz pur e alcohol) social Sex and Gender Information Value Date Recorded Sex Assigned at Not on file Gender Identity Not on file Sexual Orientation Not on file Last Filed Vital Signs Vital Sign Reading Time Taken Comments Blood Pressure 152/65 12/26/2015 11:34 AM CDT Pulse 62 12/26/2015 11:34 AM CDT Temperature 36.4 C (97.5 F) 12/26/2015 11:34 AM CDT Respiratory Rate 18 12/26/2015 11:34 AM CDT Oxygen Saturation 98% 12/26/2015 11:34 AM CDT Inhaled Oxygen Concentration 21% 12/26/2015 1 1:34 AM CDT roomair Weight 130.2 kg (287 lb) 12/26/2015 11:34 AM CDT Height 172.7 cm (5' 8 ) 12/26/2015 11:34 AM CDT Body Mass Index 43.64 12/26/2015 11:34 AM CDT Plan of Treatment Not on file Administered Medications Care Teams Ceramist Relationship Specialty Start Date End Date Booker Roberts DO [facility] [address] [address] PCP - General 01/20/09 Liam Clifford DO [facility] [address] [place] [address] Orthopedic Surgery 02/04/14 [place] [id number] [address] Pulmonary Disease 12/08/15
--- OUTSIDE RECORDS SUMMARY | 2024-04-24 13:36 | XMS_ITS | Encounter Summary ---
Author Organization [facility] Address [address] [place] [address] Care Team Providers Care Cryptographic Clerk Name Role Phone Booker Roberts DO Primary Care Provider Liam Clifford DO Unavailable Edwar Donovan MD Unavailable [phone] Encounter Details Date Type Department Care Team (Late st Contact Info) Description 04/07/2014 Therapy Visit EXTERNAL NON-[facility] DEPT Unknown, Provider Social History Tobacco Use Types Packs/Day Years Used Date Smoking Tobacco: Never Alcohol Use Standard Drinks/Week Comments No 0 (1 standard drink = 0.6 oz pur e alcohol) social Sex and Gender Information Value Date Recorded Sex Assigned at Not on file Gender Identity Not on file Sexual Orientation Not on file documented as of this encounter Plan of Treatment Not on file documented as of this encounter Visit Diagnoses Not on filedocumented in this encounter Care Teams Cryptographic Clerk Relationship Specialty Start Date End Date Booker Roberts DO [address] [place] [address] PCP - General 01/20/09 Liam Clifford DO [address] [place] [address] Orthopedic Surgery 02/04/14 [place] [address] [facility] [address] [place] [address] Pulmonary Disease 12/08/15 documented as of this encounter
--- OUTSIDE RECORDS SUMMARY | 2024-04-24 13:36 | XMS_ITS | Referral Summary ---
Author Organization [facility] Address [address] [place] [address] Care Team Providers Care Research And Development Chemist Name Role Phone Taylor Roberts DO Primary Care Provider [phone] Allergies Active Allergy Reactions Criticality Noted Date Comments Amoxicillin-Pot Clavulanate Hives,Rash Medium 08/27/19 09 Cefuroxime Axetil Itching,Other (See comments) Low 05/15/2017 Red hands Meperidine Unknown 02/10/2014 Penicillins Sulfa (Sulfonamide Antibiotics) Rash Medium 08/26/2008 Sulfanilamide Medications ALPRAZolam (XANAX) 0.25 mg tablet 0 8 Active amLODIPine (NORVASC) 5 mg tablet TAKE 1 TABLET BY MOUTH EVERY DAY 8 Active atorvastatin (LIPITOR) 40 mg tablet TAKE 1 TABLET LATE IN THE DAY 8 Active blood glucose diagnostic strip Checks 4 times daily. 7 Active calcium carbonate-vitam in D3 (CALTRATE 600 + D) 1500 mg (600 mg elemental) -400 units per tablet Take 600 mg by mouth. Active cholecalciferol (VITAMIN D-3) 1,000 unit tablet Take 1,000 Units by mouth. Active cyanocobalamin (Vitamin B-12) 1,000 mcg/mL injection Inject 1,000 mcg into the muscle as instructed once a week. Active DESVENLAFAXINE ER 50 mg 24 hr tablet 8 Active pen needle, diabetic 32 gauge x /32 needle 1 each. 7 Active multivitamin,tx -minerals (VITAMINS AND MINERALS) tablet Take 1 tablet by mouth. Active dulaglutide (TRULICITY) 1.5 mg/0.5 mL pen injector INJECT 1.5 MG UNDER THE SKIN EVERY WEEK 8 Active acetaminophen (TYLENOL) 325 mg tablet Take 650 mg by mouth every 6 (six) hours as needed for pain. Active leflunomide (ARAVA) 20 mg tabletIndicatio ns:Rheumatoid Arthritis 8 Active SYNTHROID 137 mcg tablet 8 Active propranolol (INDERAL) 40 mg tablet 8 Active insulin NPH and regular human (HumuLIN 70/30 U-100 KwikPen) 100 unit/mL (70-30) insulin pen Active solifenacin (VESIcare) 5 mg tablet TAKE 1 TABLET BY MOUTH TWICE DAILY FOR BLADDER 1 Active Poly-Iron 150 mg iron capsule Take 150 mg by mouth daily 1 Active HumaLOG 100 unit/mL pen for injection INJECT PER SLIDING SCALE AT MEALS WHEN ON STEROIDS MAX OF 30 UNITS EVERY DAY 1 Active Active Problems Problem Noted Date Diagnosed Date Diabetic - poor control 05/13/2013 Overview (06/07/2016): Diabetes mellitus out of control Hyperlipidemia 01/14/2013 Overview (06/07/2016): Hyperlipidemia Hypertension 01/14/2013 Overview (06/08/2016): Hypertension Social History Tobacco Use Types Packs/Day Years Used Date Smoking Tobacco: Never Smokeless Tobacco: Never Alcohol Use Standard Drinks/Week Comments Yes 0 (1 standard drink = 0.6 oz pur e alcohol) Comments Unknown Sex and Gender Information Value Date Recorded Sex Assigned at Not on file Legal Sex Female 7:55 AM DIRECTOR LONG TERM CARE Gender Identity Not on file Sexual Orientation Not on file Last Filed Vital Signs Vital Sign Reading Time Taken Comments Blood Pressure 122/68 05/13/2013 9:23 AM CDT Pulse 72 05/13/2013 9:23 AM CDT Temperature - - Respiratory Rate - - Oxygen Saturation - - Inhaled Oxygen Concentration - - Weight 124.7 kg (275 lb) 05/27/2020 9:51 AM CDT Height 175.3 cm (5' 9 ) 05/27/2020 9:51 AM CDT Body Mass Index 40.61 05/27/2020 9:51 AM CDT Plan of Treatment Not on file Insurance MEDICARE MEDICARE [employer] Care Teams Research And Development Chemist Relationship Specialty Start Date End Date Taylor Roberts DO [address] [phone] PCP - General 06/04/12
--- OUTSIDE RECORDS SUMMARY | 2024-04-24 13:36 | XMS_ITS | Clinical Summary ---
Author Organization [facility] Address [address] [place] [address] Care Team Providers Care Accounting Machine Mechanic Name Role Phone Taylor Roberts DO Primary Care Provider Allergies Active Allergy Reactions Criticality Noted Date Comments Amoxicillin-Pot Clavulanate Hives,Rash High 08/26/2008 Cefuroxime Axetil Itching,Other (See Comments) Low 05/15/2017 Dapagliflozin Other (See Comments) 08/15/2021 Yeast infection Meperidine Other (See Comments) 08/26/2008 Sulfa (Sulfonamide Antibiotics) Rash Low 08/26/2008 Medications FLUORIDE ION/MULTIVITAMINS (MULTI-VITAMIN PO)Indications:Iro n deficiency anemia, unspecified,Other vitamin B12 deficiency anemia,Low grade myelodysplastic syndrome lesions (CMS/HCC) Take by mouth. Activ e leflunomide (ARAVA) 20 mg Tablet Take 20 mg by mouth daily. Active cholecalciferol, vitamin D3, 1,000 unit Take 1,000 Units by mouth 2 times daily. Active solifenacin (VESICARE) 5 mg Tablet TK ONE T PO QAM AND TK ONE T PO QHS 10/14/19 20 Active Vit C-Vit M-Oyhutd-KzPy-Lute in (PRESERVISION) 226 mg-200 unit -5 mg-0.8 mg Capsule Take 1 Capsule by mouth daily. Active acetaminophen (TYLENOL ARTHRITIS) 650 mg Extended Release tablet Take 650 mg by mouth every 6 hours as needed for Pain. Active pregabalin (LYRICA) 50 mg Capsule 1 Capsule 2 times daily. 01/29/20 20 Active HumaLOG KwikPen Insulin 100 unit/mL pen syringeIndications :Uncontrolled type 2 diabetes mellitus with microalbuminuria, with long-term current use of insulin INJECT PER SLIDING SCALE AT MEALS WHEN ON STEROIDS MAX OF 30 UNITS EVERY DAY 30 mL 1 01/18/20 21 Active semaglutide (Ozempic) 1 mg/dose (4 mg/3 mL) Pen Injector INJECT 1 MG SUBCUTANEOUSLY EVERY 7 DAYS 9 mL 3 02/09/20 22 Active Additional Information Patient taking differently: 2 mg, Reported on 05/22/2022 insulin glargine (LANTUS) 100 unit/mL injection Inject 34 Units by subcutaneous injection daily at bedtime. Active dapagliflozin propanediol (Farxiga) 10 mg Tablet Take 10 mg by mouth daily. Active amLODIPine (NORVASC) 5 mg tablet Take 1 Tablet (5 mg) by mouth daily. 90 Tablet 3 08/20/19 24 Active lisinopriL (PRINIVIL) 10 mg tablet Take 1 Tablet (10 mg) by mouth daily. 90 Tablet 3 08/20/19 24 Active sertraline (ZOLOFT) 100 mg tablet Take 1 Tablet (100 mg) by mouth daily. 90 Tablet 3 08/20/19 24 Active atorvastatin (LIPITOR) 40 mg tablet TAKE 1 TABLET LATE IN THE DAY 90 Tablet 3 10/17/19 24 Active Active Problems Patient Care Coordination No te Formatting of this note migh t be different from the original. Dr Dean Villarreal, cardiology-----CV office Problem Noted Date Diagnosed Date Left ventricular diastolic dysfunction, NYHA cla ss 2 01/19/2020 Family history of premature coronary artery dise ase 10/23/2019 Type 2 diabetes mellitus wit h microalbuminuria, with long-term current use of insulin 12/19/2016 Benign hypertension with chronic kidney disease, stage III 12/19/2016 Hyperlipidemia LDL goal <70 05/15/2016 Hypothyroidism in adult 05/15/2016 Uncontrolled type 2 diabetes mellitus with micro albuminuria 11/16/2015 Microalbuminuria 11/16/2015 Morbid obesity with BMI of 40.0-44.9, adult 12/03 Poor eating habits 12/30/2014 SHERRY on CPAP 01/07/2014 Myelodysplastic syndrome, unspecified 10/28/2008 Other vitamin B12 deficiency anemia 10/28/2008 Resolved Problems Problem Noted Date Diagnosed Date Resolved Date Acute renal failure 10/23/2019 10/23/19 20 LILLIAM (acute kidney injury) 10/23/2019 Hyperkalemia 12/19/2016 09/15/2019 Uncontrolled type 2 diabetes with renal manifestation 11/06/2013 12/30/2014 Microalbuminuria 11/06/2013 12/30/2014 Encounter for long-term (cur rent) use of insulin 11/06/2013 12/19/2016 Encounters Date Type Department Care Team Description 04/01/2024 External Device Data STL ABSTRACTION Provider, Abstract 03/26/2024 External Device Data STL ABSTRACTION Provider, Abstract 03/24/2024 1:15 PM WELT MAKER Office Visit [facility] and [facility] [address] [place] [address] Ganga Ferrell MD Chronic anemia (Primary Dx) 03/24/2024 Orders Only [facility] [address] [place] [address] Ganga Ferrell MD from Last 3 Months Immunizations Immunization Administration Dates Next Due Influenza Seasonal Unspecified Formulation IM Family History Medical History Relation Name Comments Heart Disease Brother 1 CABG Diabetes Brother 2 Healthy Daughter Diabetes Father Emphysema Father Heart Disease Father Heart Failure Father Hypertension Father Depression Mother Heart Disease Mother Stents Hypertension Mother Thyroid Disease Sister Healthy Son Asthma Neg Hx Bronchitis Neg Hx Cancer Neg Hx Lung Cancer Neg Hx Mesothelioma Neg Hx Relation Name Status Comments Brother 1 Alive Brother 2 Alive Daughter Alive Father Maternal Grandfather Maternal Grandmother Mother Alive Paternal Grandfather Paternal Grandmother Sister Alive Son Alive Social History Tobacco Use Types Packs/Day Years Used Date Smoking Tobacco: Never Smokeless Tobacco: Never Tobacco Cessation:Counseling Given: Not Answered Alcohol Use Standard Drinks/Week Comments Yes 0 (1 standard drink = 0.6 oz pur e alcohol) social Comments No Sex and Gender Information Value Date Recorded Sex Assigned at Not on file Legal Sex Female 5:40 AM WELT MAKER Gender Identity Not on file Sexual Orientation Not on file Occupation Industry Job Start Date Job End Date Not on file Not on file Not on file Not on file Last Filed Vital Signs Vital Sign Reading Time Taken Comments Blood Pressure 150/71 03/24/2024 1:22 PM WELT MAKER Pulse 65 03/24/2024 1:22 PM WELT MAKER Temperature 36.4 C (97.6 F) 03/24/2024 1:22 PM WELT MAKER Respiratory Rate 18 03/24/2024 1:22 PM WELT MAKER Oxygen Saturation 97% 03/24/2024 1:22 PM WELT MAKER Inhaled Oxygen Concentration - - Weight 112.9 kg (249 lb) 11/18/2023 10:48 AM CDT Height 170.2 cm (5' 7 ) 08/20/2023 10:57 AM CDT Body Mass Index 39 08/20/2023 10:57 AM CDT Plan of Treatment Upcoming Encounters Date Type Department Care Team (Late st Contact Info) Description 07/22/2024 2:15 PM CDT Office Visit [facility] Oncology and Hematology - [place] [address] [facility] [address] [place] [address] Ganga Ferrell MD [address] [facility] [address] [place] [address] 08/18/2024 11:15 AM CDT Office Visit [facility] [address] [facility] [address] [place] [phone] Dean Villarreal MD [address] [facility] [address] [place] [address] Health Maintenance Due Date Last Done Comments DTAP/TDAP/TD VACCINES (1 - Tdap) 09/29/1971 PNEUMOCOCCAL VACCINE 65+ YEA RS (1 of 2 - PCV) 09/29/1971 Traditional Medicare (ACO) A nnual Wellness Visit 09/29/1971 BREAST CANCER SCREENING 1992 COLORECTAL SCREENING 1997 Colorectal Cancer Screening 1997 FIT-DNA Q 3 years 1997 FIT/FOBT Q 1 year 1997 Flex Sig/CT Colonography Q 5 years 1997 ZOSTER VACCINE (1 of 2) 2002 RSV VACCINE (60+ or ) (1 - Risk 60-74 years 1-dose series) 2012 LDL CHOLESTEROL ANNUAL 11/16/2020 0, 04/30/2018, 11/16/2015, Additional history exists DIABETES ANNUAL FOOT EXAM 01/31/20212019, 04/03/2017, 05/15/2016, Additional history exists DIABETES MICROALBUMIN ANNUAL SCREEN 01/30/2022 01/30/2021, 11/17/2019, 04/30/2018, Additional history exists DIABETES ANNUAL RETINAL EXAM 07/21/2023, 07/20/2022, 07/20/2022, Additional history exists INFLUENZA VACCINE (#1) 2023 12/03/2019, 2015 DIABETES HBA1C Q 6 MONTHS 04/24/20242023, 07/04/2023, 03/28/2023, Additional history exists OSTEOPOROSIS SCREENING Completed 08/11/2014 Procedures Procedure Name Priority Date/Time Associated Diagnosis Comments BASIC METABOLIC PANEL Routine 03/23/2024 2:35 PM WELT MAKER VITAMIN B12 AND FOLATE Routine 03/02/2024 8:19 AM WELT MAKER Chronic anemia IRON, TIBC, AND PERCENT SATURATION Routine 03/02/2024 8:19 AM WELT MAKER Chronic anemia FERRITIN Routine 03/02/2024 8:19 AM WELT MAKER Chronic anemia HM DIABETES EYE EXAM Routine 07/20/2022 4:03 PM CDT HEMOGLOBIN A1C Routine 08/16/2021 8:16 AM CDT Type 2 diabetes mellitus with microalbuminuria, with long-term current use of insulin ([facility]) MICROALBUMIN/CREATIN INE RATIO, RANDOM UR Routine 01/30/2021 8:21 AM WELT MAKER LIPID PANEL Routine 11/17/2019 8:25 AM CDT Hyperlipidemia LDL goal <70 from Last 3 Months or Most Recently Relevant to Health Maintenance Results * BASIC METABOLIC PANEL (03/23/2024 2:35 PM WELT MAKER) Blood us Ganga Ferrell MD CHEMISTRY ORDERABLES Final Resu lt * VITAMIN B12 AND FOLATE (03/02/2024 8:19 AM WELT MAKER) VITAMIN B12 602 200 - 1100 pg/mL [facility] FOLATE, SERUM 21.1 ng/mL [facility] Comment: Reference Range Low: <3.4 Borderline: 3.4-5.4 Normal: >5.4 FASTING:YES FASTING: YES Test [facility]formed [facility]: [facility] [address] Kaylee Herrera MD Blood 03/02/2024 8:19 AM WELT MAKER 03/02/2024 8:19 AM WELT MAKER Ganga Ferrell MD CHEMISTRY ORDERABLES Final Resu lt Performing Organization Address [facility] Co de Phone Number [facility] [phone] [facility] [address] * IRON, TIBC, AND PERCENT SATURATION (03/02/2024 8:19 AM WELT MAKER) Pathologist [facility] IRON 82 45 - 160 mcg/dL [facility] TIBC 317 250 - 450 mcg/dL (calc) [facility] IRON % SATURATION 26 16 - 45 % (calc) [facility] Comment: FASTING:YES FASTING: YES Test Performed at: [facility] [address] [place] [phone] Kaylee Herrera MD Blood 03/02/2024 8:19 AM WELT MAKER 03/02/2024 8:19 AM WELT MAKER us Ganga Ferrell MD CHEMISTRY ORDERABLES Final Resu lt Performing Organization Address City/[facility]/ZIP Co de Phone Number [facility] [phone] [facility] [employer] [facility] [address] * FERRITIN (03/02/2024 8:19 AM WELT MAKER) Pathologist [facility] FERRITIN 233 16 - 288 ng/mL [facility] Comment: Test Performed at: [facility] [address] [place] [address] Kaylee Herrera MD Blood 03/02/2024 8:19 AM WELT MAKER 03/02/2024 8:19 AM WELT MAKER Ganga Ferrell MD CHEMISTRY ORDERABLES Final Resu lt Performing Organization Address [facility] Co de Phone Number [facility] [phone] [facility] [address] [facility] [place] [address] * (ABNORMAL) DIABETES EYE EXAM (07/20/2022 4:03 PM CDT) Daryl Sahu MD HEALTH MAINTENANCE Edite d Result - Final Performing Organization Address [facility] de Phone Number [facility] * (ABNORMAL) HEMOGLOBIN A1C (08/16/2021 8:16 AM CDT) HEMOGLOBIN A1C 6.8(H) <5.7 % of total Hgb [facility] Comment: For someone without known diabetes, a hemoglobin A1c value of 6.5% or greater indicates that they may have diabetes and this should be confirmed with a follow-up test. For someone with known diabetes, a value <7% indicates that their diabetes is well controlled and a value greater than or equal to 7% indicates suboptimal control. A1c targets should be individualized based on duration of diabetes, age, comorbid conditions, and other considerations. Currently, no consensus exists regarding use of hemoglobin A1c for diagnosis of diabetes for children. ESTIMATED AVERAGE GLUCOSE (MG/DL) 148 mg/dL [facility] ESTIMATED AVERAGE GLUCOSE (MMOL/L) 8.2 mmol/L [facility] Comment: FASTING:YES FASTING: YES Test Performed at: [facility] [address] [place] [address] Kaylee Herrera Blood 08/16/2021 8:16 AM CDT 08/16/2021 8:19 AM CDT Laura Crawford MD CHEMISTRY ORDERABLES Giuliana l Result Performing Organization Address [facility] Co de Phone Number [facility] [phone] * (ABNORMAL) MICROALBUMIN/CREATININE RATIO, RANDOM UR (01/30/2021 8:21 AM WELT MAKER) Creatinine, Urine 38 20 - 275 mg/dL [facility] MICROALBUMIN, URINE 16.9 See Note: mg/dL [facility] Comment: Reference Range: Reference Range Not established MICROALBUMIN/CREAT RATIO, UR 445(H) <30 mcg/mg creat [facility] Comment: The ADA defines abnormalities in albumin excretion as follows: Albuminuria Category Result (mcg/mg creatinine) Normal to Mildly increased <30 Moderately increased 30-299 Severely increased > OR = 300 The ADA recommends that at least two of three specimens collected within a 3-6 month period be abnormal before considering a patient to be within a diagnostic category. Test Performed at: [facility] [address] [place] [address] Renaldo Benjamin D.O., MPH 01/30/2021 8:21 AM WELT MAKER 01/30/2021 8:23 AM WELT MAKER us Laura Crawford MD URINE ORDERABLES Final Re sult Performing Organization Address [facility] Co de Phone Number [facility] [address] [place] [address] * LIPID PANEL (11/17/2019 8:25 AM CDT) CHOLESTEROL 151 <200 mg/dL [facility] HDL 68 > OR = 50 mg/dL [facility] TRIGLYCERIDE 146 <150 mg/dL [facility]. [facility] LDL CALCULATED 60 mg/dL (calc) [facility] Comment: Reference range: <100 Desirable range <100 mg/dL for primary prevention; <70 mg/dL for patients with CHD or diabetic patients with > or = 2 CHD risk factors. LDL-C is now calculated using the Paul calculation, which is a validated novel method providing better accuracy than the Friedewald equation in the estimation of LDL-C. Matty BANKS et al. PAVEL. 2013;310(19): 4957-7173 (http://education.Douguo/faq/UIM119) CHOL/HDL RATIO 2.2 <5.0 (calc) [facility] TOTAL NON-HDL CHOL(LDL+VLDL) 83 <130 mg/dL (calc) [facility] Comment: For patients with diabetes plus 1 major ASCVD risk factor, treating to a non-HDL-C goal of <100 mg/dL (LDL-C of <70 mg/dL) is considered a therapeutic option. Test Performed at: [facility] [address] [place] [address] Renaldo Benjamin D.O., MPH Blood 11/17/2019 8:25 AM CDT us Laura Crawford MD CHEMISTRY ORDERABLES Edit ed Result - Final [facility] [address] [place] [address] from Last 3 Months or Most Recently Relevant to Health Maintenance Insurance MEDICARE PART A AND B [facility] MEDICARE PART A AND B [facility] Care Teams Accounting Machine Mechanic Relationship Specialty Start Date End Date Taylor Roberts DO [address] [id number] PCP - General Powder Blender 04/06/24
--- OUTSIDE RECORDS SUMMARY | 2024-04-24 13:36 | XMS_ITS | Encounter Summary ---
Author Organization [facility] Address [address] [facility] [place] [address] Care Team Providers Care Director Of Employee Development Name Role Phone Booker Roberts DO Primary Care Provider Liam Clifford DO Unavailable Edwar oDnovan MD Unavailable [phone] Encounter Details Date Type Department Care Team (Late st Contact Info) Description 03/18/2014 Therapy Visit [facility] [...] on filedocumented in this encounter Care Teams Director Of Employee Development Relationship Specialty Start Date End Date Booker Roberts DO [address] [place] [address] PCP - General 01/20/09 Liam Clifford DO [address] [place] [address] Orthopedic Surgery 02/04/14 [place] [address] [facility] [address] [place] [address] Pulmonary Disease 12/08/15 documented as of this encounter
--- OUTSIDE RECORDS SUMMARY | 2024-04-24 13:36 | XMS_ITS ---
Author Organization [facility] Address [address] [place], [place] [id number] Care Team Providers Care Marketing Strategy Analyst Name Role Phone Debora Hill Primary Care Provider Unavaildaxa e Summer Wilson Unavailable [phone] NIKKY ROY Unavailable Unavailable ALLERGIES Allergen (clinical drug ingredient) Drug/Non Drug Allergy documented on EMR Reaction Allergy Type Onset Date Status penicillin rash Drug Allergy Active Ceftin severe itching & redness Drug Allergy Active Demerol HCl jerks Drug Allergy Activ e Sulfa (uncoded) swelling Allergy Acti ve RESULTS Component Value Reference Range Notes AST (SGOT) Reviewed date:04/05/2024 07:09:48 PM Interpretation: Performing Lab:[facility], [address] [place] [address], Phone - [phone], Director - PhDGinna Notes/Report: AST (SGOT) 16 0-40 IU/L Creatinine, Serum Reviewed date:04/05/2024 07:09:37 PM Interpretation: Performing Lab:[facility], [address] [place] [address], Phone - [phone], Director - PhDGinna Notes/Report: Creatinine 1.33 0.57-1.00 mg/dL eGFR 43 >59 mL/min/1.73 ALT (SGPT) Reviewed date:04/05/2024 07:09:33 PM Interpretation: Performing Lab:[facility] [place], [address] [facility], Phone - [phone], Director - PhDKatinai Notes/Report: ALT (SGPT) 11 0-32 IU/L CBC With Differential/Platel et Reviewed date:04/05/2024 07:09:46 PM Interpretation: Performing Lab:[facility] [place], [address] [facility], [place], Phone - [phone], Director - Sivan Notes/Report: WBC 5.4 3.4-10.8 x10E3/uL RBC 3.55 3.77-5.28 x10E6/uL Hemoglobin 11.6 11.1-15.9 g/dL Hematocrit 35.8 34.0-46.6 % MCV 101 79-97 fL MCH 32.7 26.6-33.0 pg MCHC 32.4 31.5-35.7 g/dL RDW 11.6 11.7-15.4 % Platelets 231 150-450 x10E3/uL Neutrophils 65 Not Estab. % Lymphs 23 Not Estab. % Monocytes 7 Not Estab. % Eos 4 Not Estab. % Basos 1 Not Estab. % Immature Cells Neutrophils (Absolute) 3.5 1.4-7.0 x10E3/uL Lymphs (Absolute) 1.2 0.7-3.1 x10E3/uL Monocytes(Absolute) 0.4 0.1-0.9 x10E3/uL Eos (Absolute) 0.2 0.0-0.4 x10E3/uL Baso (Absolute) 0.0 0.0-0.2 x10E3/uL Immature Granulocytes 0 Not Estab. % Immature Grans (Abs) 0.0 0.0-0.1 x10E3/uL NRBC Hematology Comments: REASON FOR VISIT 6 mo f/u MEDICATIONS Medication SIG (Take, Route, Frequency, Duration) Notes Start Date End Date Status sertraline 100 mg 1 tab(s) orally once a day Active amlodipine besylate 5 mg one a a day Active solifenacin 5 mg 1 tab(s) orally once a day Active leflunomide 20 mg 1 tab(s) orally once a day Not-Taking Tylenol [facility] Extended Release Active lisinopril 5 mg 1 tab(s) orally once a day Active Tylenol prn Not-Taking HumaLOG KwikPen Acti ve atorvastatin 40 mg 1 tab(s) orally once a day Active PreserVision AREDS 2 Active Synthroid 150 mcg (0.15 mg) 1 tab(s) orally once a day Active Ozempic 2 mg/1.5 mL (0.25 mg or 0.5 mg dose) as directed subcutaneously once a week Active Lyrica 50 mg 1 cap(s) orally 2 ti mes a day Active Vitamin D3 1000 intl units 1 tab(s) orally once a day Active multivitamin 1 tab(s) daily Ac tive leflunomide 20 mg 1 tab(s) orally once a day Active SOCIAL HISTORY Tobacco Use: Social History Observation Description Date Details (start date - stop date) Never Smoker NA - NA Sex Assigned At : Social History Observation Description Sex Assigned At Unknown Tobacco Use: Question Answer Notes Smoking Status nonsmoker VITAL SIGNS BMI 40.74 kg/m2 04/03/2024 Blood pressure systolic 135 mm Hg 04/03/19 25 Blood pressure diastolic 66 mm Hg 025 Heart Rate 77 /min 04/03/2024 Height 68 in 04/03/2024 Weight 268 lbs 04/03/2024 Encounters Encounter Location Date Provider [facility] [address] [place] [address], [address] [place], [place] [id number] 04/03/2024 Summer Wilson Other skilled nursing (current) drug therapy Z79.899 ; 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.09 and Primary generalized (osteo)arthritis M15.0 ASSESSMENTS Encounter Date Diagnosis Assessment Notes Treatment Notes Treatment Clinical Notes 04/03/2024 Other skilled nursing (current) drug therapy (ICD-10 - Z79.899) 04/03/2024 Rheumatoid arthritis of multiple sites without rheumatoid factor (ICD-10 - M06.09) 04/03/2024 Primary generalized (osteo)arthritis (ICD-10 - M15.0) PLAN OF TREATMENT Medication Medication Name Sig Start Date Stop Date Notes sertraline 100 mg 1 tab(s) orally once a day amlodipine besylate 5 mg one a a day solifenacin 5 mg 1 tab(s) orally once a day Tylenol [facility] Extended Release lisinopril 5 mg 1 tab(s) orally once a day HumaLOG KwikPen atorvastatin 40 mg 1 tab(s) orally once a day PreserVision AREDS 2 Synthroid 150 mcg (0.15 mg) 1 tab(s) orally once a day Ozempic 2 mg/1.5 mL (0.25 mg or 0.5 mg dose) as directed subcutaneously once a week Lyrica 50 mg 1 cap(s) orally 2 times a day Vitamin D3 1000 intl units 1 tab(s) orally once a day multivitamin 1 tab(s) daily leflunomide 20 mg 1 tab(s) orally once a day Future Test Test Name Order Date AST (SGOT) 07/01/2024 Creatinine, Serum 07/01/2024 ALT (SGPT) 07/01/2024 CBC With Differential/Platelet Next Appt Details Follow Up: 3 Months Kelle, Reason: Provider Name:Kelle Epps , 10/01/2024 10:20:00 AM, [address] [facility], [address], [place], [place], [phone], Progress Notes * Examination Category Sub-Category Detail Notes General Constitutional: No acute distres s, obese HEENT: PERRLA, Neck supple, Normal sclerae and conjunctivae Cardiovascular left lower extremity edema/Lymphedema Abdomen: soft, no organomegal y or masses /Rectal: not done Skin: No cutaneous lesions . No subcutaneous nodules noted in the 4 extremities Neurological: No focal neurologica l findings Heme/Lymphatic: No cervical, axillar y, or inguinal adenopathy Psych: Alert, oriented x 3, Normal affect Musculoskeletal: Normal strength. No muscle atrophy Joint Exam Shoulders No swelling. No tenderness. NROM. Elbows No swelling. No tend erness. NROM., No instability or deformity. Wrists No swelling. No tend erness. NROM., No instability or deformity. Hips No tenderness, NROM. , No instability or deformity. Knees total knee replaceme nt Ankles bilateral, Chronic c hanges, but no active synovitis. All IPs No swelling, no tend erness, NROM, no deformity unless noted below. All MCPs bilateral 2nd and 3r d fullness All PIPs No swelling, no tend erness, no deformity unless noted below. All DIPs Heberden's nodes pre sent History and Physical Notes * HPI (History of Present Illness) Category Sub-Category Detail Notes Rheumatology Alopecia Chest pain Discoloration of fingers Dryness mouth Fatigue Fevers Headaches History of miscarriage(s) Joint pain Joint stiffness Joint swelling Malar rash Morning stiffness Muscle ache/pain Oral sores Photosensitivity Rash Raynauds phenomena Joint Weakness Muscle Weakness Psoriasis Back pain Digital ulcers family history of rheumatic disease Weight loss swollen glands tendinitis Gout shortness of breath numbness or tingling Cough Physical Examination Category Sub-Category Detail Notes MDHAQ Summary Function (0-10):: 2.3 Pain (0-10):: 2.5 Patient Global Assessment of Disease Activity (0 -10):: 1.5 RAPID3 Score (0-30):: 6.3 Physician Global Assessment of Disease Activity (0-10):: 1 Prognosis Very Good w/tx Erosive Damage No
--- OUTSIDE RECORDS SUMMARY | 2024-04-24 13:36 | XMS_ITS | Patient Health Summary ---
Author Organization [facility] Address [address] [facility] [place] [address] Care Team Providers Care Film Spooler Name Role Phone Booker Roberts DO Primary Care Provider Liam Clifford DO Unavailable Edwar Donovan MD Unavailable [phone] Note from [facility],non-owned Affiliates and Associated Physician Practices is amultiple site organization consisting of ambulatory clinics and hospital sitesin [place], [place], [place] and [place]. This disclosure is being madepursuant to the Care Everywhere program and may not contain all information available regarding this patient. Last updated 17.[facility] Allergies * Meperidine * Penicillins * Sulfa Drugs Medications * Be aware that medications may not be up to date on this document. Alwaysverify current medications with the patient. * Insulin Isophane & Regular (HUMULIN 70/30 SC) Inject subcutaneously. * metformin ER 24hr (GLUCOPHAGE XR) 500MG tablet Take 500 mg by mouth daily with dinner. * LORAZEPAM PO Take 1 mg by mouth at bedtime. * cyanocobalamin (VITAMIN B-12) injection Inject 1,000 mg into muscle every 7 days. * ferrous sulfate 325 (65 FE) MG tablet Take 325 mg by mouth daily with breakfast. * magnesium 500 MG TABS tablet Take 500 mg by mouth once daily. * multivitamin daily (THERAGRAN) tablet Take 1 Tab by mouth daily with food. * vitamin D, cholecalciferol, 2000 UNITS tablet Take 2,000 Units by mouth once daily. * ONETOUCH ULTRA TEST STRIPS test strip(Started 05/19/2014) * simvastatin (ZOCOR) 80 MG tablet(Started 04/05/2014) * Insulin Aspart (NOVOLOG PENFILL SC) Inject 2 Units subcutaneously * Phendimetrazine Tartrate 105 MG CP24 Take 105 mg by mouth * TRULICITY 1.5 MG/0.5ML injection(Started 10/09/2015) 1.5 mg every 7 days * HUMULIN N KWIKPEN pen(Started 09/19/2015) * levothyroxine (SYNTHROID) 125 MCG tablet(Started 09/09/2015) Take 1 Tab by mouth once daily * escitalopram (LEXAPRO) 20 MG tablet(Started 09/09/2015) Take 30 mg by mouth once daily * omeprazole (PRILOSEC) 40 MG capsule(Started 09/26/2015) Take 1 Cap by mouth 2 times daily * hyoscyamine CR 12hr (LEVBID) 0.375 MG tablet Take 0.375 mg by mouth 2 times daily * dicyclomine (BENTYL) 10 MG capsule Take 10 mg by mouth 4 times daily * losartan (COZAAR) 50 MG tablet Take 50 mg by mouth once daily * diclofenac sodium XR 24hr (VOLTAREN XR) 100 MG tablet Take 100 mg by mouth every Saturday, Saturday & Saturday * oxybutynin (DITROPAN) 5 MG tablet Take 5 mg by mouth 3 times daily * propranolol (INDERAL) 40 MG tablet Take 40 mg by mouth every 24 hours Active Problems Problem Noted Date Diagnosed Date [...] 10/28/2008 Other vitamin B12 deficiency anemia 10/28/2008 Social History Tobacco Use Types Packs/Day Years [...] Mass Index 43.64 12/26/2015 11:34 AM CDT Procedures * IMAGING/RADIOLOGY/XRAY RESULTS ORDER(Performed 06/06/2016) * IMAGING/RADIOLOGY/XRAY RESULTS ORDER(Performed 12/27/2015) * IMAGING/RADIOLOGY/XRAY RESULTS ORDER(Performed 12/19/2015) * ALLERGEN INTERPRETATION(Performed 12/08/2015) * DEVONTE BLOOD SCREEN W/REFLEX TITER(Performed 12/08/2015) Performed for Chronic cough * RHEUMATOID FACTOR BLOOD QUANTITATIVE(Performed 12/08/2015) Performed for Chronic cough * QUANTIFERON TB-GOLD(Performed 12/08/2015) Performed for Chronic cough * VITAMIN D 25-HYDROXY(Performed 12/08/2015) Performed for Vitamin D deficiency * ANGIOTENSIN CONVERTING ENZYME BLOOD(Performed 12/08/2015) Performed for Chronic cough * TSH(Performed 12/08/2015) Performed for Weight gain * CBC W AUTO DIFFERENTIAL(Performed 12/08/2015) Performed for Chronic cough * ERYTHROCYTE SEDIMENTATION RATE(Performed 12/08/2015) Performed for Chronic cough * PNEUMONITIS HYPERSENSITIVE SCREEN(Performed 12/08/2015) Performed for Chronic cough * FUNGAL ANTIBODY PANEL IMMUNODIFFUSION(Performed 12/08/2015) Performed for Chronic cough * ALLERGEN RESPIRATORY PNL REGION 8 ([place])(Performed 12/08/2015) Performed for Chronic cough * BRONCHIAL CHALLENGE(Performed 12/08/2015) Performed for Chronic cough * COMPLETE PFT W/WO BRONCHODILATOR(Performed 12/08/2015) Performed for Chronic cough * BLOOD GASES ART (ISTAT)(Performed 12/08/2015) * BLOOD GASES ARTERIAL POCT(Performed 12/08/2015) Performed for Chronic cough * COOXIMETRY ARTERIAL(Performed 12/08/2015) Performed for Chronic cough * LAB RESULTS ORDER(Performed 11/16/2015) * IMAGING/RADIOLOGY/XRAY RESULTS ORDER(Performed 08/31/2015) * MRI SHOULDER RIGHT WO CONTRAST(Performed 10/11/2014) Performed for Follow-up examination, following right AC reconstruction on 02-23-14, Pain in right shoulder * ACROMIOPLASTY/SUBACROMIAL DECOMPRESSION SHOULDER(Performed 02/23/2014) Performed for Primary localized osteoarthrosis, shoulder region * CLAVICULECTOMY/RESECTION STERNOCLAVICULAR(Performed 02/23/2014) Performed for Primary localized osteoarthrosis, shoulder region * GLUCOSE - POINT OF CARE(Performed 02/23/2014) * GLUCOSE - POINT OF CARE(Performed 02/23/2014) * EKG 12-LEAD(Performed 02/23/2014) Performed for Acromioclavicular joint arthritis * BASIC METABOLIC PANEL (CALCIUM TOTAL)(Performed 02/23/2014) Performed for Acromioclavicular joint arthritis * MRI SHOULDER RIGHT WO CONTRAST(Performed 02/08/2014) Performed for Right shoulder pain Results * IMAGING/RADIOLOGY/XRAY RESULTS ORDER (06/06/2016) Only the most recent of4 resultswithin the time period is included. Anatomical Region Laterality Modality Other Edwar Donovan MD IMAGING * ALLERGEN INTERPRETATION (PO REF LAB) (12/08/2015 1:28 PM CDT) Interpretation See Below [facility] Comment: Specific Level of Allergen IGE Class kU/L Specific IGE Antibody ----- --------- 0 <0.10 Absent/Undetectable 0/1 0.10-0.34 Very Low Level 1 0.35-0.69 Low Level 2 0.70-3.49 Moderate Level 3 3.50-17.4 High Level 4 17.5-49.9 Very High Level 5 50-100 Very High Level 6 >100 Very High Level The clinical relevance of allergen results of 0.10-0.34 kU/L are undetermined and intended for specialist use. Allergens denoted with a include results using one or more analyte specific reagents. In those cases, the test was developed and its analytical performance characteristics have been determined by [facility]. It has not been cleared or approved by the U.S. Food and Drug Administration. The FDA has determined that such clearance or approval is not necessary. This assay has been validated pursuant to the CLIA regulations and is used for clinical purposes. Test Performed at: [facility], [place] [id number] HOWIE ESCAMILLA DO,MPH 12/08/2015 1:28 PM CDT 12/08/2015 1:29 PM CDT Edwar Donovan MD LAB - SEROLOGY ORDER BILLIE Performing Organization Address [facility] Co de Phone Number R[facility] [address] [place] [address] * (ABNORMAL) RHEUMATOID FACTOR BLOOD QUANTITATIVE (12/08/2015 1:28 PM CDT) Rheumatoid Factor 24(H) <14 IU/mL [facility] Comment: Test Performed at: [facility], [place] [id number] HOWIE ESCAMILLA DO,MPH Blood specimen (specimen) BLOOD SPECIMEN / Unknown 12/08/2015 1:28 PM CDT 12/08/2015 1:29 PM CDT Edwar Donovan MD [facility] Performing Organization Address [facility] Co de Phone Number RUST [address] [place] [address] * DEVONTE BLOOD SCREEN W/REFLEX TITER (12/08/2015 1:28 PM CDT) DEVONTE Screen NEGATIVE NEGATIVE [facility] Comment: Test Performed at: [facility], [place] [id number] HOWIE ESCAMILLA DO,MPH Blood specimen (specimen) BLOOD SPECIMEN / Unknown 12/08/2015 1:28 PM CDT 12/08/2015 1:29 PM CDT Edwar Donovan MD LAB - CHEMISTRY CULLEN AMANDAKO Performing Organization Address [facility] [place] [address] * PNEUMONITIS HYPERSENSITIVE SCREEN (12/08/2015 1:28 PM CDT) Aspergillus fumigatus NEGATIVE NEGATIVE [facility] Micropolyspora faeni NEGATIVE NEGATIVE [facility] Mun[place] Serum NEGATIVE NEGATIVE [facility] Thermoactinomyces candidus NEGATIVE NEGATIVE [facility] Thermoactinomyces vulgaris NEGATIVE NEGATIVE [facility] S. viridis NEGATIVE NEGATIVE [facility] Comment: This test was developed and its analytical performance characteristics have been determined by [facility]. It has not been cleared or approved by the U.S. Food and Drug Administration. The FDA has determined that such clearance or approval is not necessary. This assay has been validated pursuant to the CLIA regulations and is used for clinical purposes. Test Performed at: [facility] [address] [id number] GLENROY LEVY MD PHD Blood specimen (specimen) BLOOD SPECIMEN / Unknown 12/08/2015 1:28 PM CDT 12/08/2015 1:29 PM CDT Edwar Donovan MD LAB - CHEMISTRY CULLEN VASQUEZ Performing Organization Address [facility] [place] [address] * FUNGAL ANTIBODY PANEL BY ID (12/08/2015 1:28 PM CDT) Aspergillus flavus Antibody NEGATIVE [facility] Aspergillus niger Antibody NEGATIVE [facility] Aspergillus fumigatus Antibodies NEGATIVE [facility] Comment: REFERENCE RANGE: NEGATIVE INTERPRETIVE CRITERIA: Negative: Antibody not detected Positive: Antibody detected A positive result is represented by 1 or more precipitin bands, and may indicate fungus ball, allergic bronchopulmonary aspergillosis (BRO) or invasive aspergillosis. Generally, the appearance of 3-4 bands indicates either fungus ball or BRO. Test Performed at: [facility] [id number] [place] [id number] BLAKE DE LEON MD Blastomyces Antibody by Immunodiffusion NEGATIVE [facility] Comment: REFERENCE RANGE: NEGATIVE INTERPRETIVE CRITERIA: NEGATIVE: Antibody Not Detected POSITIVE: Antibody Detected A positive result is diagnostic of active or recent blastomycosis and is found in approximately 80% of proven cases of blastomycosis. Thalia Antibody ID NEGATIVE [facility] Comment: REFERENCE RANGE: NEGATIVE INTERPRETIVE CRITERIA: NEGATIVE - Antibody not detected POSITIVE - Antibody detected Detection of antibody recognizing Thalia is 70-80% specific for systemic candidiasis, and sensitivity is related to the immunocompetence of the patient. The immunocompromised patient with overwhelming candidiasis may not exhibit detectable Thalia antibody. Coccidiomyces Antibody NEGATIVE [facility] Comment: REFERENCE RANGE: NEGATIVE INTERPRETIVE CRITERIA: NEGATIVE: Antibody Not Detected POSITIVE: Antibody Detected The immunodiffusion (ID) procedure correlates both in sensitivity and clinical utility with the CF test. The ID test, which detects IgG directed to the F antigen, becomes positive within 4 weeks after infection and remains positive throughout clinically active disease. It is most useful in confirming the specificity of low CF titers, where line(s) of identity are formed with reference antisera. Positive ID reactions are diagnostic for coccidioidomycosis and usually indicate active or recent disease and remain detectable for up to 1 year thereafter. Histoplasma Antibody ID NEGATIVE [facility] Comment: REFERENCE RANGE: NEGATIVE INTERPRETIVE CRITERIA: NEGATIVE: Antibody Not Detected POSITIVE: Antibody Detected Positive immunodiffusion (ID) reactions involve one or more specific precipitin bands. Of these bands the first to appear in active histoplasmosis is the M band, which is seen in approximately 70% of proven cases. This band is also seen in some patients with past infections and in 20% of those with recent histoplasmin skin testing. The H band is usually seen in active and progressive histoplasmosis and almost always in the presence of the M band, although it is found less often (approx. 10% of proven cases.) Blood specimen (specimen) BLOOD SPECIMEN / Unknown 12/08/2015 1:28 PM CDT 12/08/2015 1:29 PM CDT Edwar Donovan MD LAB - CHEMISTRY CULLEN VASQUEZ [facility] [address] [place] [address] * (ABNORMAL) ALLERGEN RESPIRATORY PROFILE ([place]) (12/08/2015 1:28 PM CDT) Allergen Dermatophagoides pteronyssinus <0.10 kU/L [facility] Class 0 [facility] Allergen Dermatophagoides farinae <0.10 kU/L [facility] Class 0 [facility] Allergen P. notatum <0.10 kU/L [facility] Class 0 [facility] Allergen C Herbarum <0.10 kU/L [facility] Class 0 [facility] Allergen Aspergillus fumigatus <0.10 kU/L [facility] Class 0 [facility] Allergen Alternaria alternata <0.10 kU/L [facility] Class 0 [facility] Comment: Test Performed at: [facility] [address] [place] [address] HOWIE ESCAMILLA,DO,MPH Allergen Cat Dander <0.10 kU/L [facility] Class 0 [facility] Allergen Dog Dander <0.10 kU/L [facility] Class 0 [facility] Allergen Cockroach Swedish <0.10 kU/L [facility] Class 0 [facility] Allergen Maple <0.10 kU/L [facility] Class 0 [facility] Allergen Mountain Navarro <0.10 kU/L [facility] Class 0 [facility] Allergen Towson Tree <0.10 kU/L [facility] Class 0 [facility] Allergen West Manchester <0.10 kU/L [facility] Class 0 [facility] Allergen York Tree <0.10 kU/L [facility] Class 0 [facility] Allergen White Christiano <0.10 kU/L [facility] Class 0 [facility] Allergen Ridgefield <0.10 kU/L [facility] Class 0 [facility] Allergen Elm <0.10 kU/L [facility] Class 0 [facility] Allergen Garland/Pecan Tree <0.10 kU/L [facility] Class 0 [facility] Allergen White Indianola <0.10 kU/L [facility] Class 0 [facility] Allergen Bermuda Grass <0.10 kU/L [facility] Class 0 [facility] Allergen José Grass <0.10 kU/L [facility] Class 0 [facility] Allergen Common Ragweed <0.10 kU/L [facility] Class 0 [facility] Allergen Rough Pigweed <0.10 kU/L [facility] Class 0 [facility] Allergen Papua [place] Guinean Thistle <0.10 kU/L [facility] Class 0 [facility] Allergen Rough Rolon Elder <0.10 kU/L [facility] Class 0 [facility] Allergen Mouse Urine Protein <0.10 kU/L [facility] Class 0 [facility] IgE 219(H) <JU=892 kU/L [facility] Blood specimen (specimen) BLOOD SPECIMEN / Unknown 12/08/2015 1:28 PM CDT 12/08/2015 1:29 PM CDT Edwar Donovan MD LAB - CHEMISTRY CULLEN VASQUEZ Performing Organization Address City/[facility]/ZIP Co de Phone Number [facility] [address] [place] [address] * VITAMIN D 25-HYDROXY (12/08/2015 1:28 PM CDT) Vitamin D, 25 Hydroxy 46 30 - 100 ng/mL [facility] Comment: Vitamin D Status 25-OH Vitamin D: Deficiency: <20 ng/mL Insufficiency: 20 - 29 ng/mL Optimal: > or = 30 ng/mL For 25-OH Vitamin D testing on patients on D2-supplementation and patients for whom quantitation of D2 and D3 fractions is required, the QuestAssureD(TM) 25-OH VIT D, (D2,D3), LC/MS/MS is recommended: order code 80133 (patients >2yrs). For more information on this test, go to: http://education.optionsXpress/faq/OAY163 (This link is being provided for informational/educational purposes only.) Test Performed at: [facility] [id number] HOWIE ESCAMILLA DO,MPH Blood specimen (specimen) BLOOD SPECIMEN / Unknown 12/08/2015 1:28 PM CDT 12/08/2015 1:29 PM CDT Edwar Donovan MD LAB - CHEMISTRY CULLEN VASQUEZ Performing Organization Address [facility] Co de Phone Number [facility] [address] [place] [phone] * ANGIOTENSIN CONVERT ENZYME BLOOD (12/08/2015 1:28 PM CDT) Angiotensin-Conv erting Enzyme 29 9 - 67 U/L [facility] Comment: Test Performed at: [facility] [address] [id number] HOWIE ESCAMILLA DO,MPH Blood specimen (specimen) BLOOD SPECIMEN / Unknown 12/08/2015 1:28 PM CDT 12/08/2015 1:29 PM CDT Edwar Donovan MD LAB - CHEMISTRY CULLEN VASQUEZ [address] [address] [place] [address] * QUANTIFERON TB-GOLD (12/08/2015 1:28 PM CDT) [facility] QuantiFERON TB Gold NEGATIVE NEGATIVE [facility] Comment: Negative test result. M. tuberculosis complex infection unlikely. NIL 0.01 IU/mL [facility] Mitogen Nil 1.58 IU/mL [facility] TB-Nil 0.00 IU/mL [facility] Comment: The Nil tube value is used to determine if the patient has a preexisting immune response which could cause a false-positive reading on the test. In order for a test to be valid, the Nil tube must have a value of less than or equal to 8.0 IU/mL. The mitogen control tube is used to assure the patient has a healthy immune status and also serves as a control for correct blood handling and incubation. It is used to detect false-negative readings. The mitogen tube must have a gamma interferon value of greater than or equal to 0.5 IU/mL higher than the value of the Nil tube. The TB antigen tube is coated with the M. tuberculosis specific antigens. For a test to be considered positive, the TB antigen tube value minus the Nil tube value must be greater than or equal to 0.35 IU/mL. For additional information, please refer to http://education.optionsXpress/faq/QFT (This link is being provided for informational/ educational purposes only.) Test Performed at: [facility] [id number] HOWIE ESCAMILLA DO,MPH Blood specimen (specimen) BLOOD SPECIMEN / Unknown 12/08/2015 1:28 PM CDT 12/08/2015 1:29 PM CDT Edwar Donovan MD LAB - CHEMISTRY CULLEN VASQUEZ Performing Organization Address City/[facility] Co de Phone Number [facility] [address] [place] [phone] * SED RATE WESTERGREN (12/08/2015 1:28 PM CDT) Pathologist [facility] Erythrocyte Sedimentation Rate Westergren 22 < OR = 30 mm/h [facility] Comment: Test Performed at: [facility] [employer] [id number] HOWIE ESCAMILLA DO,MPH Blood specimen (specimen) BLOOD SPECIMEN / Unknown 12/08/2015 1:28 PM CDT 12/08/2015 1:29 PM CDT Edwar Donovan MD LAB - HEMATOLOGY ORD ERABLES Performing Organization Address [facility] Co de Phone Number [facility] [address] [place] [address] * (ABNORMAL) CBC W AUTO DIFFERENTIAL (12/08/2015 1:28 PM CDT) Pathologist [facility] White Blood Cell Count 7.0 3.8 - 10.8 Thousand/u L [facility] RBC 3.50(L) 3.80 - 5.10 Million/uL [facility] Hemoglobin 11.2(L) 11.7 - 15.5 g/dL [facility] Hematocrit 33.6(L) 35.0 - 45.0 % [facility] MCV 96.1 80.0 - 100.0 fL [facility] MCH 32.0 27.0 - 33.0 pg [facility] MCHC 33.3 32.0 - 36.0 g/dL [facility] RDW 13.9 11.0 - 15.0 % [facility] Platelet Count 223 140 - 400 Thousand/u L [facility] MPV 8.9 7.5 - 11.5 fL [facility] Neutrophil Absolute 5103 1500 - 7800 cells/uL [facility] Lymphocytes Absolute 1449 850 - 3900 cells/uL [facility] Absolute Monocytes 294 200 - 950 cells/uL [facility] Eosinophils Absolute 133 15 - 500 cells/uL [facility] Basophils Absolute 21 0 - 200 cells/uL [facility] Granulocytes % 72.9 % [facility] Lymphocytes % 20.7 % [facility] Monocytes % 4.2 % [facility] Eosinophils % 1.9 % [facility] Basophils % 0.3 % [facility] Comment: Test Performed at: [facility] [address] [place] [address] HOWIE ESCAMILLA DO,MPH Blood specimen (specimen) BLOOD SPECIMEN / Unknown 12/08/2015 1:28 PM CDT 12/08/2015 1:29 PM CDT Edwar Donovan MD LAB - HEMATOLOGY ORD MARIA DOLORES Performing Organization Address [facility] Co de Phone Number [facility] [address] [place] [address] * TSH (12/08/2015 1:28 PM CDT) TSH 4.44 0.40 - 4.50 mIU/L [facility] Comment: Test Performed at: [facility] [address] [place] [id number] HOWIE ESCAMILLA DO,MPH Blood specimen (specimen) BLOOD SPECIMEN / Unknown 12/08/2015 1:28 PM CDT 12/08/2015 1:29 PM CDT Edwar Donovan MD LAB - CHEMISTRY CULLEN VASQUEZ [facility] Organization Address City/State/ZIP Co de Phone Number [facility] [address] [place] [address] * COMPLETE PFT W/WO BRONCHODILATOR (12/08/2015 12:00 PM CDT) 12/08/2015 12:0 0 PM CDT Narrative Transcriptions Edwar Donovan MD - 12/08/2015 11:47 AM CDT [facility] PULMONARY FUNCTION TEST REPORT PATIENT: HORTENCIA SHERMAN MR#: [id number] ADMIT DATE: 12/08/2015 CSN: [id number] DATE OF PROCEDURE: 12/08/2015 :1950 PHYSICIAN: Edwar Donovan MD REFERRING PHYSICIAN: Edwar Donovan MD 1. Baseline spirometry reveals normal expiratory flows. 2. FEV1/FVC ratio is normal. 3. Lung volumes demonstrate a mild decrease in total lung capacity. 4. Gas transfer capacity is diminished, but corrects for lung volume. 5. Flow volume loop has a restrictive pattern. 6. Arterial blood gases on room air demonstrate no hypoxemia orhypercapnia. IMPRESSION: There is no obstructive lung disease. There is mildrestrictive lung disease. Gas transfer capacity is diminished, but corrects forlung volume with normal oxygenation and ventilation on arterial blood gases. Edwar Ricketts MD MANUEL/MODL #:[id number] Edwra Donovan MD RESPIRATORY THERAPY ORDERABLES Performing Organization Address [facility] de Phone Number [facility] * BRONCHIAL CHALLENGE (12/08/2015 12:00 PM CDT) 12/08/2015 12:0 0 PM CDT Narrative Transcriptions Edwar Donovan MD - 12/08/2015 11:48 AM CDT [facility] PULMONARY FUNCTION TEST REPORT PATIENT: HORTENCIA SHERMAN MR#: [id number] ADMIT DATE: 12/08/2015 CSN: [id number] DATE OF PROCEDURE: 12/08/2015 :1950 PHYSICIAN: Edwar Donovan MD REFERRING PHYSICIAN: Edwar Donovan MD 1. The patient was tested with incremental doses of methacholine to a maximum dose of 25 mg. 2. There was no significant change in expiratory flows, even at maximumdose methacholine. 3. Administration of bronchodilator after methacholine did not result inany increase in expiratory flows. IMPRESSION: Negative methacholine challenge. There is no evidence forany significant, reversible airway obstruction (asthma). Edwar Ricketts MD MANUEL/MODL #:[id number] Edwar Donovan MD PFT ORDERABLES Performing Organization Address [facility] de Phone Number [facility] * (ABNORMAL) BLOOD GASES ART (ISTAT) (12/08/2015 9:58 AM CDT) pH Arterial POCT 7.35 7.35 - 7.45 pH 12/08/2015 10:02 AM CDT [facility] RESP THERAP[facility] pCO2 Arterial 39.0 35 - 45 mmHg 12/08/2015 10:02 AM CDT [facility] RESP THERAPY pO2 Arterial 76(L) 80 - 100 mmHg 12/08/2015 10:02 AM CDT [facility] RESP THERAP[facility] HCO3 Arterial POCT 21.7(L) 22 - 26 mmol/L 12/08/2015 10:02 AM CDT [facility] RESP THERAP[facility] BE Arterial -4(L) -2 - 2 mmol/L 12/08/2015 10:02 AM CDT [facility] RESP THERAP[facility] TCO2 Arterial Calc POCT 23 23 - 27 mmol/L 12/08/2015 10:02 AM CDT [facility] RESP THERAPY O2 Saturation Arterial 95 90 - 100 % 12/08/2015 10:02 AM CDT [facility] RESP THERAPY Site L Radial 12/08/2015 10:02 AM CDT [facility] RESP THERAPY Erasmo's Test POS/PASS 12/08/2015 10:02 AM CDT [facility] RESP THERAP[facility] Treatment Delivery Method Room Air 12/08/2015 10:02 AM CDT [facility] RESP [facility]ERAP[facility] FI O2 21 % 12/08/2015 10:02 AM CDT [facility] RESP THERAP[facility] Notification Time 955 12/08/2015 10:02 AM CDT [facility] RESP [facility]ERAP[facility] Sample iSTAT ARTERI 12/08/2015 10:02 AM CDT [facility] RESP THERAP[facility] PT iSTAT [id number] 12/08/2015 10:02 AM CDT [facility] RESP THERAP[facility] Device 12/08/2015 10:02 AM CDT [facility] RESP THERAPY Stencil Printer ID [id number] 12/08/2015 10:02 AM CDT [facility] RESP THERAP[facility] Blood ARTERIAL BLOOD SPECIMEN / Unknown 12/08/2015 9:58 AM CDT 12/08/2015 10:02 AM CDT Edwar Donovan MD LAB - POINT OF CARE ORDERABLES Performing Organization Address [facility] Co de Phone Number [facility] RESP THERAPY [address] * BLOOD GASES ARTERIAL POCT (12/08/2015 9:31 AM CDT) Comment Notification Label Only - See Separate Report 12/08/2015 11:00 AM CDT [facility] PULM THERAP[facility] Blood BLOOD SPECIMEN / Unknown 12/08/2015 9:31 AM CDT 12/08/2015 9:31 AM CDT Edawr Donovan MD LAB - BLOOD GASES OR DERABLES Performing Organization Address [facility] Co de Phone Number [facility] PULM THERAP[facility] [address] * COOXIMETRY ARTERIAL (12/08/2015 9:31 AM CDT) Hemoglobin Arterial 10.5 gm/dL 12/08/2015 9:58 AM CDT [facility]ULM [facility]ERAP[facility] Oxyhemoglobin Arterial 96 % 12/08/2015 9:58 AM CDT [facility] PULM [facility]ER[facility] Carboxyhemoglobin Arterial 0.1 % 12/08/2015 9:58 AM CDT [facility]M [facility] Methemoglobin Arterial 0.0 % 12/08/2015 9:58 AM CDT [facility] [place] [id number] 12/08/2015 9:58 AM CDT [facility]M [facility] Blood ARTERIAL BLOOD SPECIMEN / Unknown 12/08/2015 9:31 AM CDT 12/08/2015 9:31 AM CDT Edwar Donovan MD LAB - BLOOD GASES OR DERABLES Performing Organization Address [facility] Co de Phone Number [facility] PULM THERAPY [address] [place] [address], [facility] * LAB RESULTS ORDER (11/16/2015) Laura Crawford MD LAB - THERAPEUTIC DRUG MONITORING ORDERABLES * MRI SHOULDER WO CONT RIGHT (10/11/2014) Only the most recent of2 resultswithin the time period is included. Anatomical Region Laterality Modality Other Liam Clifford DO MR ORDERABLES * GLUCOSE - POINT OF CARE (02/23/2014 9:48 AM GLOBAL MARKETING OPERATIONS MANAGER) Only the most recent of2 resultswithin the time period is included. Glucose WB/POC 94 70 - 106 mg/dL 02/23/2014 12:02 PM GLOBAL MARKETING OPERATIONS MANAGER [facility] Blood BLOOD SPECIMEN / Unknown 02/23/2014 9:48 AM GLOBAL MARKETING OPERATIONS MANAGER 02/23/2014 12:02 PM GLOBAL MARKETING OPERATIONS MANAGER Liam Clifford DO LAB - POINT OF CARE ORDERABLES Performing Organization Address [facility]/ZIP Co de Phone Number [facility] [address] [place] [address] * EKG 12-LEAD (02/23/2014 7:41 AM GLOBAL MARKETING OPERATIONS MANAGER) Ventricular Rate 67 BPM [facility] MUSE Atrial Rate 67 BPM [facility]USE P-R Interval 162 ms [facility] MUSE QRS Duration ms 98 ms [facility] MUSE Q-T Interval ms 402 ms [facility] MUSE QTC Calculation (Bezet) 424 ms [facility] MUSE Calculated P [place] 16 degrees [facility] MUSE Calculated R [place] 52 degrees [facility] MUSE Calculated T [place] 22 degrees [facility] MUSE Interpretation EKG Normal sinus rhythm with sinus arrhythmia Normal ECG No previous ECGs available Confirmed by JULIETTE CUNNINGHAM MD ([id number]) on 02/24/2014 8:42:15 AM [facility] MUSE 02/23/2014 7:41 AM GLOBAL MARKETING OPERATIONS MANAGER 02/24/2014 8:42 AM [facility] Bennett Wu MD ECG ORDERABLES DP MUSE * (ABNORMAL) BASIC METABOLIC PANEL (CALCIUM TOTAL) (02/23/2014 7:33 AM [facility]) Pathologist [facility] Glucose 84 74 - 106 mg/dL 02/23/2014 7:[address] [facility] Sodium 141 136 - 145 mmol/L 02/23/2014 7:[address] [facility] Potassium 4.9 3.5 - 5.1 mmol/L 02/23/2014 7:[address] [facility] Chloride 109(H) 98 - 107 mmol/L 02/23/2014 7:[address] [facility] CO2 26 22 - 31 mmol/L 02/23/2014 7:[address] [facility] Calcium 9.3 8.5 - 10.1 mg/dL 02/23/2014 7:[address] [facility] Anion Gap 6 5 - 15 mmol/L 02/23/2014 7:[address] [facility] BUN 29(H) 7 - 21 mg/dL 02/23/2014 7:[address] [facility] Creatinine 1.21 0.50 - 1.30 mg/dL 02/23/2014 7:[address] [facility] eGFR by MDRD 45(L) >60 mL/min/1.7 3m2 02/23/2014 7:[address] [facility] eGFR by MDRD 55(L) >60 mL/min/1.7 3m2 02/23/2014 7:50 AM GLOBAL MARKETING OPERATIONS MANAGER [facility] Blood BLOOD SPECIMEN / Unknown 02/23/2014 7:33 AM GLOBAL MARKETING OPERATIONS MANAGER 02/23/2014 7:37 AM GLOBAL MARKETING OPERATIONS MANAGER Liam Clifford DO LAB - CHEMISTRY CULLEN VASQUEZ [facility] [address] [place], [place] [id number] Care Teams Film Spooler Relationship Specialty Start Date End Date Booker Roberts DO [address] [facility] [address] [place] [address] PCP - General 01/20/09 Liam Clifford DO [address] [facility] [address] [place] [address] Orthopedic Surgery 02/04/14 [place] [address] [facility] [address] [place] [address] Pulmonary Disease 12/08/15
--- OUTSIDE RECORDS SUMMARY | 2024-04-24 13:36 | XMS_ITS ---
Author Organization [facility] Address [address] [place], [place] [id number] Care Team Providers Care All Source Intelligence Technician Name Role Phone Enochkar Debora Primary Care Provider Unavaildaxa e Summer Wilson Unavailable [phone] NIKKY ROY Unavailable Unavailable REASON FOR VISIT weather MEDICATIONS Medication SIG (Take, Route, Frequency, Duration) Notes Start Date End Date Status Lyrica 50 mg 1 cap(s) orally 2 ti mes a day Active Vitamin D3 1000 intl units 1 tab(s) orally once a day A ctive multivitamin 1 tab(s) daily Ac tive Synthroid 150 mcg (0.15 mg) 1 tab(s) orally once a day A ctive amlodipine besylate 5 mg one a a day Active lisinopril 5 mg 1 tab(s) orally once a day Active sertraline 100 mg 1 tab(s) orally once a day Active PreserVision AREDS 2 Active atorvastatin 40 mg 1 tab(s) orally once a day Active solifenacin 5 mg 1 tab(s) orally once a day Active leflunomide 20 mg 1 tab(s) orally once a day Active Tylenol prn Active HumaLOG KwikPen Acti ve leflunomide 20 mg 1 tab(s) orally once a day Active Ozempic 2 mg/1.5 mL (0.25 mg or 0.5 mg dose) as directed subcutaneously once a week Active Tylenol Arthritis Extended Release Active Encounters Encounter Location Date Provider Diagnosis [facility] [address] 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.09 and Primary generalized (osteo)arthritis M15.0 ASSESSMENTS Encounter Date Diagnosis Assessment Notes Treatment Notes Treatment Clinical Notes 03/09/2024 Other reel blade bender furnace tender (current) drug therapy (ICD-10 - Z79.899) 03/09/2024 Rheumatoid arthritis of multiple sites without rheumatoid factor (ICD-10 - M06.09) 03/09/2024 Primary generalized (osteo)arthritis (ICD-10 - M15.0) PLAN OF TREATMENT Medication Medication Name Sig Start Date Stop Date Notes leflunomide 20 mg 1 tab(s) orally once a day Tylenol Arthritis Extended Release Next Appt Details Follow Up: 3 Months Kelle, Reason: Provider Name:Kelle cazares, 10/01/2024 10:20:00 AM, [address] [facility] [facility] [address], [place], [place], [id number], Progress Notes * Examination Category Sub-Category Detail [...]
--- OUTSIDE RECORDS SUMMARY | 2024-04-24 13:36 | XMS_ITS | Encounter Summary ---
Author Organization [facility] Address [address] [place] [address] Care Team Providers Care Window Assembler Name Role Phone AlejandraTaylor lakhani Magdalena Primary Care Provider Encounter Details Date Type Department Care Team (Latest Contact Info) Description 09/02/2008 [facility] Kiki Murry MD NO ADDRESS ON FILE Encounter for Antineoplastic Chemotherapy Social History Tobacco Use Types Packs/Day Years Used Date Smoking Tobacco: Never Alcohol Use Standard Drinks/Week Comments Yes 0 (1 standard drink = 0.6 oz pur e alcohol) social Comments No Sex and Gender Information Value Date Recorded Sex Assigned at Not on file 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 [address] [place] [address] Dean Villarreal MD [facility] [address] [facility] [address] [place] [address] documented as of this encounter Visit Diagnoses Diagnosis Encounter for antineoplastic chemotherapy documented in this encounter Care Teams Window Assembler Relationship Specialty Start Date End Date Taylor Roberts DO [facility] [phone] PCP - General Loan Specialist 04/06/24 documented as of this encounter
--- OUTSIDE RECORDS SUMMARY | 2024-04-24 13:36 | XMS_ITS ---
Author Organization [facility] Address [address] [place], [place] [id number] Care Team Providers Care Centerless Grinder Tender Name Role Phone LizDebora Primary Care Provider UnavailSummer Gann Unavailable [phone] NIKKY ROY Unavailable Unavailable REASON FOR VISIT Cancel Appointment Request Encounters Encounter Location Date Provider Diagnosis [facility] [address], [address] [place], [place] [phone] 03/05/2024 Summer Wilson PLAN OF TREATMENT Next Appt Details Provider Name:Kelle cazares, 10/01/2024 10:20:00 AM, [address], [address], [place], [place], [id number],
--- OUTSIDE RECORDS SUMMARY | 2024-04-24 13:36 | XMS_ITS | Clinical Summary ---
Author Organization [facility] Address [address] [facility] [place] [address] Care Team Providers Care Pulverizer Mill Operator Name Role Phone Booker Roberts DO Primary Care Provider Liam Clifford DO Unavailable Edwar Donovan MD Unavailable [phone] Source Comments [facility],non-owned Affiliates and Associated Physician Practices is amultiple site organization consisting of ambulatory clinics and hospital sitesin [place], [place]. This disclosure is being madepursuant to the Care Everywhere program and may not contain all information available regarding this patient. Last updated 17.[facility] Allergies Active Allergy Reactions Criticality Noted Date [...] 12/26/2015 11:34 AM CDT Plan of Treatment Health Maintenance Due Date Last Done Comments BONE DENSITY TESTING 1950 COLOGUARD (AGES 45-75) - COL ON CA SCREENING 1952 COLON MONITORING 1952 COLONOSCOPY - COLON CA SCREENING 1952 CT COLONOGRAPHY - COLON CA SCREENING 1950 Colorectal Cancer Screening 1952 FIT - COLON CA SCREENING 1952 FLEX SIG - COLON CA SCREENING 1952 MAMMOGRAM 1952 HEPATITIS C SCREENING 09/24/1970 DTAP/TDAP/TD VACCINES (1 - Tdap) 09/29/1971 PNEUMOCOCCAL VACCINE 50+ (1 of 2 - PCV) 09/29/1971 ZOSTER VACCINE (1 of 2) 2002 Respiratory Syncytial Virus (RSV) Vaccine Pt: or over 60 yrs (1 - Risk 60-74 years 1-dose series) 2012 COVID-19 VACCINE ( - 2023-2 5 season) 2023 INFLUENZA VACCINE (#1) 2023 DEPRESSION SCREENING 03/04/2024 HEPATITIS B VACCINE Aged Out No longe r eligible based on patient's age to complete this topic HIB VACCINE Aged Out No longer eligi ble based on patient's age to complete this topic HPV VACCINE Aged Out No longer eligi ble based on patient's age to complete this topic MENINGOCOCCAL (Group B) VACCINE Aged Out No longer eligible based on patient's age to complete this topic MENINGOCOCCAL VACCINE Aged Out No julito nichole eligible based on patient's age to complete this topic Care Teams Pulverizer Mill Operator Relationship Specialty Start Date End Date Booker Roberts DO [facility] [address] PCP - General 01/20/09 Liam Clifford DO [facility] [address] [place] [address] Orthopedic Surgery 02/04/14 [place] [address] [facility] [address] [place] [address] Pulmonary Disease 12/08/15
--- OUTSIDE RECORDS SUMMARY | 2024-04-24 13:36 | XMS_ITS | Encounter Summary ---
Author Organization [facility] Address [address] [place] [address] Care Team Providers Care Accounts Payable Payroll Coordinator Name Role Phone Booker Roberts DO Primary Care Provider Liam Clifford DO Unavailable Edwar Donovan MD Unavailable [phone] Encounter Details Date Type Department Care Team (Late st Contact Info) Description 04/30/2014 Therapy Visit [facility] Unknown, Provider Social History Tobacco Use [...] on filedocumented in this encounter Care Teams Accounts Payable Payroll Coordinator Relationship Specialty Start Date End Date Booker Roberts DO [address] [place] [address] PCP - General 01/20/09 Liam Clifford DO [address] [place] [address] Orthopedic Surgery 02/04/14 [place] [address] [facility] [address] [place] [address] Pulmonary Disease 12/08/15 documented as of this encounter
--- OUTSIDE RECORDS SUMMARY | 2024-04-24 13:36 | XMS_ITS | Continuity of Care Document ---
Author Organization [facility] Address [address] [address] [place] [address] Phone Care Team Providers Care Chief Administrative Officer Name Role Phone Aubrey Hutchison MD Unavailable Unavailable Allergies, Adverse Reactions, Alerts Substance Reaction Status Criticality gefitinib Active No Information PRESERVATIVE FREE Active No Informa tion MEPERIDINE HCL Active No Informatio n Sulfa (Sulfonamide Antibiotics) Unknown Active No Information Penicillins Unknown Active No Information sulfanilamide Rash Active No Information Penicillins Rash Active No Information Medications Medication Instructions Dosage Effective Dates (start - stop) Status Comments Trulicity 1.5 mg/0.5 mL subcutaneous pen injector - Active desvenlafaxine succinate ER 50 mg tablet,extended release 24 hr - Active diclofenac 1 % topical gel - Active leflunomide 20 mg tablet - A ctive propranolol 40 mg tablet - A ctive losartan 50 mg-hydrochlorothiazide 12.5 mg tablet - Active methylprednisolone 4 mg tablets in a dose pack - Active tramadol 50 mg tablet - Acti ve levofloxacin 500 mg tablet - Active prednisone 10 mg tablet - Ac tive atorvastatin 40 mg tablet - Active alprazolam 0.25 mg tablet - Active diclofenac sodium 75 mg tablet,delayed release - Active omeprazole 40 mg capsule,delayed release - Active folic acid 1 mg tablet - Act luann Humulin 70/30 100 unit/mL subcutaneous suspension - Active RIOMET (unknown strength) Not Available - Active GLIMEPIRIDE (unknown strength) Not Available - Active SYNTHROID (unknown strength) Not Available - Active CITALOPRAM HBR (unknown strength) Not Available - Active SIMVASTATIN (unknown strength) Not Available - Active LORAZEPAM (unknown strength) Not Available - Active ZANTAC (unknown strength) Not Available - Active HYOSCYAMINE SULFATE (unknown strength) Not Available - Active DICYCLOMINE HCL (unknown strength) Not Available - Active LISINOPRIL (unknown strength) Not Available - Active (unknown strength) Not Available - Active LEVEMIR (unknown strength) Not Available - Active METFORMIN HCL (unknown strength) Not Available - Active TIROSINT (unknown strength) Not Available - Active DYRENIUM (unknown strength) Not Available - Active HYDROCHLOROTHIAZIDE (unknown strength) Not Available - Active LORAZEPAM (unknown strength) Not Available - Active B-12 (unknown strength) Not Available - Ac tive JANUVIA (unknown strength) Not Available - Active SIMVASTATIN (unknown strength) Not Available - Active CITALOPRAM HBR (unknown strength) Not Available - Active PRILOSEC (unknown strength) Not Available - Active ZANTAC (unknown strength) Not Available - Active Advance Directives Directive Yes / No Effective Date File Name No Information Encounters Encounter Description Practice Location Reason(s) For Visit Diagnoses Date Provider Providers Copied on Encounter [facility], [address], [address], [place] tel:[phone] [facility] O Alexander Trigger ring finger of right hand Fe- 9 Foster Burgos. [address] [place], [place], [address] . tel: [phone] [facility], [address], [address], [place] tel:[phone] [facility] [place] Trigger finger of right thumbBody mass index (BMI) 39.0-39.9, adultOther specified diabetes mellitus with unspecified complications 8 Foster Burgos. [address] [place], [place], [address] . tel: [phone] [facility], [address], [address], [place] tel:[phone] [facility] [place] Aftercare following surgery of the musculoskeletal system 7 Foster Burgos. [address] [place], [place], [address] . tel: [phone] [facility], [address], [place], [address], [place] tel:[phone] [facility] [place] Aftercare following surgery of the musculoskeletal system Apr-2 7 Foster Burgos. [address] [place], [place], [address] . tel: [phone] [facility], [address], [place], [address], [place] tel:[phone] [facility] [place] Trigger finger, right middle fingerTrigger ring finger of right hand Mar-3 0 7 Foster Burgos. [address] [place], [place], [address] . tel: [phone] [facility], [address], [place], [address], [place] tel:[phone] [facility] [place] Carpal tunnel syndrome of left wristPain of right handTrigger finger, right middle finger Nov-0 201 6 Foster Burgos. [address] [place], [place], [address] . tel: [phone] [facility], [address], [place], [address], [place] tel:[phone] [facility] [place] Pain in right handTrigger finger, right middle finger Sep-2 201 6 Foster Burgos. [address] [place], [place], [address] . tel: [phone] [facility], [address], [place], [address], [place] tel:[phone] [facility] [place] Aftercare following surgery of the musculoskeletal system, necPain in joint involving hand Nov-1 3-201 4 Foster Burgos. [address] [place], [place], [address] . tel: [phone] [facility], [address] [facility], [place], [address], [place] tel:[phone] [facility] [place] No Information 4 Foster Burgos. [address] [place], [place], [address] . tel: [phone] [facility], [address] [facility] [address] [place] [address], [address], [place] tel:[phone] [facility] [place] Aftercare following surgery of the musculoskeletal system, [facility] 4 Foster Burgos. [address] [place], [place], [address] . tel: [phone] [facility], [address] [facility] [address] [place] [address], [address], [place] tel:[phone] [facility] [place] Carpal Tunnel Syndrome 4 Foster Burgos. [address] [place], [place], [address] . tel: [phone] [facility], [address] [address] [facility], [place], [address], [place] tel:[phone] [facility] Sprain of other specified sites of hip and thigh 2 Yuliya Castellanos. [address] [facility] [address], [place], [place], [address] . tel: [phone] Referring Provider: Carmenza Roberts, [address], [place], [address]. tel:[phone] [facility], [address] [address] [facility], [place], [address], [place] tel:[phone] [facility] No Information 2 Talya Gutierrez. [address] [address] [facility], [place], [place], [address] . tel: [phone] Referring Provider: Carmenza Roberts, [address], [place], [address]. tel:[phone] Family History Family Member Type Diagnosis Age At Onset Problem (finding) Family history of hyper tension Problem (finding) Family history of Diabe funmilayo mellitus Mother Problem (finding) TKA Problem (finding) Family history of anemi a Problem (finding) Family history of Heari ng impairment Mother Problem (finding) coronary arterioscleros is Mother Problem (finding) hypertension Father Problem (finding) coronary arterioscleros is Payers Payer name Insurance type Covered democrat ID Authoriza tion(s) No Information Social History Type Description Quantity Date Captured Comments Sex Female Smoking Status No Information Chief Complaint And Reason For Visit No Information Reason For Referral Reason For Referral No Information Plan Of Treatment Date Type Action Status Referral Ordered: RADEX PELVIS 1/2 VIEWS ordered History Of Present Illness Encounter Date Complaint History Of Prese nt Illness No Information Functional Status Date Functional Assessmen t No Information Instructions Date Instruction Additional Infor mation No Information Assessments Type Assessment Date No Information Patient Care Teams Name Effective Dates (start - stop) Status Members No Information
--- OUTSIDE RECORDS SUMMARY | 2024-04-24 13:36 | XMS_ITS | Encounter Summary ---
Author Organization [facility] Address [address] [place] [address] Care Team Providers Care Manager Heart Failure Name Role Phone AlejandraTaylor lakhani Magdalena Primary Care Provider Encounter Details Date Type Department Care Team (Latest Contact Info) Description 09/02/2008 [facility] Kiki Murry MD NO ADDRESS ON FILE Encounter for Antineoplastic Chemotherapy Social History Tobacco Use Types Packs/Day Years Used Date Smoking Tobacco: Never Alcohol Use Standard Drinks/Week Comments Yes 0 (1 standard drink = 0.6 oz pur e alcohol) social Comments No Sex and Gender Information Value Date Recorded Sex Assigned at Not on file 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 Gender Identity Not on file Sexual Orientation Not on file documented as of this encounter Plan of Treatment Upcoming Encounters Date Type Department Care Team (Late st Contact Info) Description 07/22/2024 2:15 PM CDT Office Visit [facility] Oncology and [facility]ology - [place] [address] [facility] [address] [place] [address] Ganga Ferrell MD [address] [facility] [address] [place] [address] 08/18/2024 11:15 AM CDT Office Visit [facility] At [place] [address] [facility] [address] [place] [address] Dean Villarreal MD [facility] [address] [facility] [address] [place] [address] documented as of this encounter Visit Diagnoses Diagnosis Encounter for antineoplastic chemotherapy documented in this encounter Care Teams Manager Heart Failure Relationship Specialty Start Date End Date Taylor Roberts DO [facility] [phone] PCP - General Junior Assistant Manager 04/06/24 documented as of this encounter
--- OUTSIDE RECORDS SUMMARY | 2024-04-24 13:36 | XMS_ITS | Clinical Summary ---
Author Organization [facility] Address [address] [place] [address] Care Team Providers Care School Bus Monitor Name Role Phone Taylor Roberts DO Primary Care Provider [phone] Allergies Active Allergy Reactions Criticality Noted Date [...] (06/07/2016): Hyperlipidemia Hypertension 01/14/2013 Overview (06/08/2016): Hypertension Surgical History Surgery Date Site/Laterality Comments KNEE ARTHROPLASTY Knee replacement HYSTERECTOMY Hysterectomy OTHER SURGICAL HISTORY 03/04/2011 - 03/03/2012 left thumb surgery CHOLECYSTECTOMY 03/04/2012 - 03/03/2013 Cholecystectomy TUBAL LIGATION TRIGGER FINGER RELEASE TRIGGER FINGER RELEASE CARPAL TUNNEL RELEASE SHOULDER SURGERY APPENDECTOMY CATARACT EXTRACTION Medical History Medical History Date Comments Hyperlipidemia Hyperlipidemia Irritable bowel syndrome Irritab le bowel disease Anxiety Arthritis Depression Diabetes mellitus (HCC) Gastric reflux Chronic kidney disease Obesity Rheumatoid arthritis (HCC) Family History Medical History Relation Name Comments Coronary artery disease Father Sharif nary artery disease, premature; Diabetes Father Diabetes mellit us; Heart disease Father Hypertension Father Stroke Father Stroke; Arthritis Mother Heart disease Mother Hypertension Mother Relation Name Status Comments Father Mother Social History Tobacco Use Types Packs/Day Years Used Date Smoking Tobacco: Never Smokeless Tobacco: Never Alcohol Use Standard Drinks/Week Comments Yes 0 (1 standard drink = 0.6 oz pur e alcohol) Comments Unknown Sex and Gender Information Value Date Recorded Sex Assigned at Not on file 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
--- OUTSIDE RECORDS SUMMARY | 2024-04-24 13:39 | XMS_ITS | Continuity of Care Document ---
Author Organization [facility] Address [address] [facility] [address] [place] [address] Phone Care Team Providers Care Salesperson Driver Name Role Phone Margaret Willingham OD Unavailable [...] Copied on Encounter Office/outpa tient Visit, Est [employer] [facility], [address], [place], [place], [address], [place] tel:[phone] SEC Chad REYES Professional diabetic eye exam (chief complaint) Type 2 diab with mild nonp rtnop without macular edema, biPresence of intraocular lensEndothel ial corneal dystrophy of both eyes 9202 4 Maulik OD Margaret. [facility] [address], [address], [place], [place], [address], [place]. tel:[phone] Specialist: Mor Max, [address], [place], [address]. tel:[phone] alist: Summer Wilson MD, [address], [place], [address]. tel:[phone] ring Provider: Justice Rodgers, [address], [place], [address]. tel:[phone] [employer] [facility] [employer] [facility], [address], [place], [place], [address], [place] tel:[phone] SEC Chad ERIC Professional Complete Exam (chief complaint) Type 2 diab with mild nonp rtnop without mclr edema, l eyeType 2 diab with mild nonp rtnop without mclr edema, r eyePresence of intraocular lens 3 Sahu Daryl. [address], [place], [place], [address], [place]. tel:[phone] Specialist: Trista Max MD, [address] [place], [address]. tel:[phone] alist: Summer Wilson MD, [address], [place], [address]. tel:[phone] Provider: Laura Crawford MD, [address], [place], [address]. tel:[phone] ring Provider: Justice Rodgers, [address], [place], [address]. tel:[phone] [facility] Eye [facility], [address], [place], [place], [address], [place] tel:[phone] SEC South Se[place]illeshannon Hidalgo Complete Exam (chief complaint) Type 2 diab with mild nonp rtnop without macular edema, biPresence of intraocular lens 2 Shane Rendon. [address], [address], [place], [place], [address], [place]. tel:[phone] Laura Crawford MD.Summer Wilson MD.Speciali st: Taylor Roberts DO, [address] [facility], [place], [address]. tel:[phone] Provider: Laura Crawford MD, [address], [place], [address]. tel:[phone] ring Provider: Justice Rodgers, [address] [place] [address] [employer] [facility] [address], [place], [address]. tel:[phone] [facility] Eye [facility], [address] [place] [address] [address], [place], [place], [address], tel:[phone] SEC Pallavi N Lindbergh Complete Exam (chief complaint) Type 2 diab with mild nonp rtnop without macular edema, biPresence of intraocular lens Nov-1 2-202 1 Shane Rendon. [address] [place] [address] [employer] [facility], [address], [place], [place], [address], [place]. tel:[phone] Specialist: Laura Crawford MD, [address], [place], [address]. tel:[phone] alist: Summer Wilson MD, [facility] [address], [place], [address]. tel:[phone] Provider: Laura Crawford MD, [address], [place], [address]. tel:[phone] ring Provider: Justice Rodgers, [address] [place] [address] [address], [place], [address]. 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 [address] [place] [address], [address], [place], [place], [address], [place]. tel:[phone] Specialist: Laura Crawford MD, [address], [place], [address]. tel:[phone] alist: Summer Wilson MD, [address], [place], [address]. tel:[phone] Provider: Laura Crawford MD, [address], [place], [address]. tel:[phone] ring Provider: Justice Rodgers, [address] [place] [address] [address], [place], [address]. tel:[phone] [facility] Eye [facility], [address] [place] [address] [address], [place], [place], [address], [place] tel:[phone] SEC Chad REYES Professional No Information 0 Luis Alberto Brito. [address] [facility], [address], [place], [place], [address], [place]. tel:[phone] Specialist: Laura Crawford MD, [address] [facility] [address], [place], [address]. tel:[phone] alist: Summer Wilson MD, [address], [place], [address]. tel:[phone] [facility], [address] [place] [address] [address], [place], [place], [address], [place] tel:[phone] SEC Chad REYES Professional Complete DM Exam (chief complaint) Type 2 diab with mild nonp rtnop with macular edema, l eyeType 2 diab with mild nonp rtnop without mclr edema, r eyeMeibomian gland dysfnct right eye, upper and lower eyelidsMeibo nikolai gland dysfnct left eye, upper and lower eyelidsPrese nce of intraocular lens 0 Shane Rendon. [address] [place] [address], [address], [place], [place], [address], [place]. tel:[phone] Laura Crawford MD.Speciali st: Taylor Roberts DO, [address] [facility], [place], [address]. tel:[phone] Provider: Laura Crawford MD, [address], [place], [address]. tel:[phone] ring Provider: Justice Rodgers, [facility] [employer] [address], [place], [address]. tel:[phone] [facility], [facility] [employer] [address], [place], [place], [address], [place] [phone] SEC Chad REYES Professional 3 week s/p YAG PC (chief complaint) Post-op cataract surgery right eye 9 Neil Blackmon. [facility] [facility], [address]th [address], [place], [address], [place]. tel:[phone] Referring Provider: Justice Rodgers, [facility] [employer], [place], [address]. [phone] Office/outpa tient Visit, [facility], [facility] [employer] [address], [place], [place], [address], [place] [phone] SEC Chad REYES Professional PCF (chief complaint) Other secondary cataract, right eyePresence of intraocular lensType 2 diab with mild nonp rtnop without mclr edema, l eye 9 Shane Rendon. [facility] [employer], [address], [place], [place], [address], [place]. tel:[phone] Laura Crawford MD.Speciali st: Taylor Roberts DO, [address], [place], [address]. tel:[phone] ring Provider: Justice Rodgers, [facility] [address], [place], [address]. tel:[phone] [facility], [facility] [employer] [address], [place], [place], [address], [place] [phone] SEC Chad REYES Professional Diabetic eye exam (chief complaint) Type 2 diab with mild nonp rtnop without mclr edema, l eyeOther secondary cataract, right eyePresence of intraocular lens 9 Shane Rendon. [facility] [employer], [address], [place], [place], [address], . tel:[phone] Specialist: Laura Crawford MD, [address], [place], [address]. tel:[phone] Provider: Laura Crawford MD, [address], [place], [address]. tel:[phone] ring Provider: Justice Rodgers, [facility] [address], [place], [address]. tel:[phone] [facility], [facility] [address], [place], [place], [address], tel:[phone] SEC Chad REYES Professional Post-Op (chief complaint) Surgery follow-up examination 8 Luis Alberto Brito. [address] [facility], [address], [place], [place], [address], [place]. tel:[phone] Referring Provider: Justice Rodgers, [facility] [address] [facility] [address], [place], [address]. tel:[phone] Office/outpa tient Visit, Est [facility], [facility] [address], [place], [place], [address], [place] tel:[phone] HOMA REYES Professional Blurry/decre ased vision (chief complaint) Other secondary cataract, left eyePresence of intraocular lensType 2 diab with mild nonp rtnop without macular edema, bi 8 Shane Rendon. [facility] [employer] [facility], [address], [place], [place], [address], . tel:[phone] Other Provider: Laura Crawford MD, [address], [place], [address]. tel:[phone] ring Provider: Justice Rodgers, [facility] [address], [place], [address]. tel:[phone] [facility], [address], [place], [place], [address], [place] [phone] SEC Chad REYES Professional No Information May-0 8 Shane Rendon. [facility] [employer], [address], [place], [place], [address], [place]. tel:[phone] Office/outpa tient Visit, [facility], [facility] [address], [place], [place], [address], [place] tel:[phone] SEC Pallavi Landeros 6 month DFE (chief complaint) Type 2 diab with mild nonp rtnop without macular edema, biOther secondary cataract, left eye Dec- 7 Shane Rendon. [facility] [employer], [address], [place], [place], [address], [place]. tel:[phone] Other Provider: Laura Crawford MD, [address], [place], [address]. tel:[phone] ring Provider: Justice Rodgers, [facility] [address], [place], [address]. tel:[phone] [facility], [facility] [employer] [address], [place], [place], [address], [place] tel:[phone] SEC Pallavi Landeros 2 wk PC IOL PO (chief complaint) Post-op cataract surgery left eye Trey- 7 Flaquita Huber. [address] [facility], [address], [place], [place], [address], [place]. tel:[phone] Referring Provider: Justice Rodgers, [facility] [employer], [place], [address]. tel:[phone] [facility], [address] [place] [address] [address], [place], [place], [address], tel:[phone] SEC [place] N Lindbergh 1 day PO (chief complaint) No Information Aug-0 7 Sams Mayo. [address] [facility], [address], [place], [place], [address], . tel:[phone] Referring Provider: Justice Rodgers, [address] [place] [address] [employer] [facility] [address], [place], [address]. tel:[phone] [facility], [address] [place] [address] [address], [place], [place], [address], tel:[phone] [facility] No Information 0 7 Shane Rendon. [address] [place] [address] [employer] [facility], [address], [place], [place], [address], . tel:[phone] Referring Provider: Justice Rodgers, [address] [place] [address] [employer] [facility] [address], [place], [address]. [phone] [facility] Eye [facility], [address] [place] [address] [address], [place], [place], [address], [phone] SEC Pallavi N Angelbergh 2 wk PC IOL PO (chief complaint) No Information 7 Sams Mayo. [address] [facility], [address], [place], [place], [address], . tel:[phone] Referring Provider: Justice Rodgers, [address] [place] [address] [employer] [facility] [address], [place], [address]. tel:[phone] [facility], [address] [place] [address] [address], [place], [place], [address], [phone] SEC [place] N Lindbergh F/u exam, postop (chief complaint) No Information 7 Sams Mayo. [address] [facility], [address], [place], [place], [address], [place]. tel:[phone] Referring Provider: Justice Rodgers, [facility] [employer] [address], [place], [address]. [phone] [facility] Eye [facility], [address] [place] [address] [address], [place], [place], [address], [place] tel:[phone] [facility] No Information 7 Shane Rendon. [facility] [address] [employer], [address], [place], [place], [address], [place]. tel:[phone] Referring Provider: Justice Rodgers, [facility] [employer] [facility] [address], [place], [address]. [phone] [facility], [address] [place] [address] [address], [place], [place], [address], [place] tel:[phone] SEC Pallavi Landeros Complete Exam (chief complaint) No Information 0 7 Shane Rendon. [facility] [employer], [address], [place], [place], [address], [place]. tel:[phone] Other Provider: Laura Crawford MD, [address] [facility] [address], [place], [address]. tel:[phone] ring Provider: Justice Rodgers, [facility] [employer], [place], [address]. [phone] Office/outpa tient Visit, Est [facility], [facility] [address], [place], [place], [address], [place] [phone] SEC Pallavi Landeros CLOTH EXAMINER MACHINE check OU (chief complaint) No Information 0-201 6 Shane Rendon. [facility] [address] [employer], [address], [place], [place], [address], [place]. tel:[phone] Other Provider: Laura Crawford MD, [address] [facility] [address], [place], [address]. tel:[phone] ring Provider: Justice Rodgers, [facility] [employer] [address], [place], [address]. [phone] [facility], [facility] [employer] [address], [place], [place], [address], [place] [phone] SEC Pallavi Landeros Yearly-Diabe tic (chief complaint) No Information Apr-0 4-201 6 Shane Rendon. [facility] [employer], [address], [place], [place], [address], [place]. tel:[phone] Specialist: Taylor Roberts DO, [address] [facility], [place], [address]. tel:[phone] ring Provider: Justice Rodgers, [facility] [employer] [address], [place], [address]. [phone] Office/outpa tient Visit, [facility] [employer] [facility], [facility] [address], [place], [place], [address], [place] [phone] SEC Pallavi Landeros Difficulty reading (chief complaint) No Information Mar-3 0-201 5 Shane Rendon. [facility] [employer], [address], [place], [place], [address], [place]. tel:[phone] Referring Provider: Justice Rodgers, [facility] [employer] [address], [place], [address]. [phone] [facility], [facility] [address], [place], [place], [address], [place] tel:[phone] SEC Pallavi Landeros Annual Diabetic Exam (chief complaint) No Information Sep-2 9-201 4 Shane Rendon. [facility] [employer], [address], [place], [place], [address], [place]. tel:[phone] Referring Provider: Justice Rodgers, [facility] [address], [place], [address]. tel:[phone] [employer] Eye [facility], [address] [place], [place] [address] [address], [place], [place], [address], [place] [phone] SEC Pallavi N Lindbergh eyes doing well, without complaint. (chief complaint) No Information 3 Shane Rendon. [facility] [employer], [address], [place], [place], [address], [place]. tel:[phone] Referring Provider: Justice Rodgers, [facility] [employer] [address], [place], [address]. [phone] [employer] [facility], [facility] [employer] [address], [place], [place], [address], tel:[phone] SEC [place] N Lindbergh Diabetes Examination (chief complaint) No Information 2201 2 Shane Rendon. [facility] [employer], [address], [place], [place], [address], [place]. tel:[phone] [facility], [address] [address], [place], [place], [address], [place] tel:[phone] SEC [place] N Lindbergh No Information 0-201 1 Shane Rendon. [facility] [employer], [address], [place], [place], [address], [place]. tel:[phone] [employer] [facility], [facility] [employer] [address], [place], [place], [address], [place] tel:[phone] SEC Pallavi N Lindbergh No Information 3-201 1 Shane Rendon. [facility] [employer], [address], [place], [place], [address], [place]. tel:[phone] Referring Provider: Justice Rodgers, [address], [place], [address]. tel:[phone] [employer] Eye [facility], [address], [place], [place], [address], [place] tel:[phone] SEC Pallavi N Lindbergh No Information 0 Shane Rendon. [address], [address], [place], [place], [address], [place]. tel:[phone] [employer] Eye [facility], [address], [place], [place], [address], [place] tel:[phone] SEC Pallavi N Lindbergh No Information 9 Shane Rendon. [address], [address], [place], [place], [address], [place]. tel:[phone] Referring Provider: Justice Rodgers, [address] [place] [address], [place], [address]. tel:[phone] [employer] Eye [facility], [address], [place], [place], [address], [place] tel:[phone] SEC [place] N Lindbergh No Information 9 [employer] . [address] [facility], [address] [place] [address], [address], . tel:[phone] Referring Provider: Mayo Sweeney, [address] [facility] [address], [place], [address]. tel:[phone] lting Provider: Shannan Jewell, [address] [facility], [place], [address]. tel:[phone] [employer] Eye [facility], [address], [place], [place], [address], [place] [phone] SEC Pallavi N Lindbergh No Information 9 Flaquita Huber. [address] [facility], [address], [place], [place], [address], . tel:[phone] [facility] Eye [facility], [address], [place], [place], [address], tel:[phone] SEC [place] N Angelbergh No Information 9 Flaquita Huber. [address] [facility], [address], [place], [place], [address], . tel:[phone] [facility] Eye [facility], [address] [place] [address] [address], [place], [place], [address], tel:[phone] SEC [place] N Angelbergh No Information 8 Shane Rendon. [address] [place] [address] [employer] [facility], [address], [place], [place], [address], . tel:[phone] [facility], [address], [place], [place], [address], tel:[phone] SEC Pallavi N Angelbergh No Information 7 Shane Rendon. [address] [place] [address] [employer] [facility], [address], [place], [place], [address], . tel:[phone] Referring Provider: Justice Rodgers, [address] [place] [address] [employer] [facility] [address], [place], [address]. [phone] Family History Family Member Type Diagnosis Age At Onset Father Problem (finding) diabetes melli tus in first degree relative Problem (finding) Mother Problem (finding) Retinal Disease Payers Payer name Insurance type Covered green party ID Authoriza tipoonam(s) Medicare [facility] [id number] [facility] CI [id number] Social History Type Description Quantity Date Captured [...] BSL 112 this morning, A1C is unknown, Rice Cleaning Machine Tender is Dr. Crawford. Pt would like notes [...] using any eye drops. PT denies pain/discomfort. CLOTH EXAMINER MACHINE check OU The 65 year old female presents for a 6 month CLOTH EXAMINER MACHINE check OU, patient is type 2 diabetic, is insulin dependant. Patient denies any pain or discomfort at this time. States v/a is stable, no gtts are used at this time.Dr. Laura Crawford is pt's Rice Cleaning Machine Tender.Address: [facility] [address] [place], [place] [address]Slajp: Yearly-Diabetic The 64 year old female presents for yearly Diabetic Eye Exam. Patient has a history of Diabetes Type 2 with CLOTH EXAMINER MACHINE, and Cataracts OU. Patient states her vision [...] Exam. Patient states her and her new Rice Cleaning Machine Tender Laura Crawford M.D. are trying to get her Diabetes under better control. Patient states that her vision seems pretty stable, but thinks it may be time for new glasses. Patient denies the use of eye drops.New Rice Cleaning Machine Tender Address: [facility] Ann Rodgers, [address] [place], [place]. [address]Bwktu: [phone] / Functional Status Date Functional Assessmen t [...] sched ce od 1st standard monofocal Oct-10-2016 Follow up - 6 months complete exam/ CLOTH EXAMINER MACHINE check Impression/Plan - Di abetes type II: [...] and BCVA on return prior to dilation. Type 2 diab with mil d nonp rtnop without macular edema, bi - Rec good blood sugar control Related to Type 2 diab with mild nonp rtnop without macular edema, bi Type 2 diab with mil d nonp rtnop without macular edema, bi - Letter sent to PCP/Specialist Related to Type 2 diab with mild nonp rtnop without macular edema, bi Follow up - 6 months CLOTH EXAMINER MACHINE follow up Impression/Plan - Di abetes type II: mild [...] Dr. Crawford. Spec Rx given to pt. Type 2 diab w mild n onprlf diabetic rtnop w/o macular edema - Letter sent to PCP/Specialist Related to Type 2 diab w mild nonprlf diabetic rtnop w/o macular edema - 1 yr complete exam cat check/CLOTH EXAMINER MACHINE follow up Related to See list of [...] to See list of assessments above - 6 months dm check Related to B ackground Diabetic Retinopathy Cataract, Nuclear Sc lerosis, OU - established, stable - will continue to monitor - discussed progression with pt, monitor Related to Cataract, Nuclear Sclerosis Background Diabetic Retinopathy, OS, c/w NPDR, worsening from last visit, suspicious area of neovascularization at the edge of the ON, lower temporal quadrant, No NPDR OD - Discussed progression with pt. Pt understands the importance of good blood sugar and blood pressure control. [facility] and Dr. Roberts, Related to Background Diabetic [...]
--- OUTSIDE RECORDS SUMMARY | 2024-04-24 13:39 | XMS_ITS | Patient Health Record ---
Author Organization [facility] Address 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 Role Phone Debora Hill Primary Care Provider UnavailSummer Gann Unavailable [phone] NIKKY ROY Unavailable Unavailable Kelle Storey Unavailable [phone] ALLERGIES Allergen (clinical drug ingredient) Drug/Non Drug Allergy documented on EMR Reaction Allergy Type Onset Date Status penicillin rash Drug Allergy Active Ceftin severe itching & redness Drug Allergy Active Demerol HCl jerks Drug Allergy Activ e Sulfa (uncoded) swelling Allergy Acti ve RESULTS Component Value Reference Range Notes AST (SGOT) Reviewed date:09/25/2023 10:24:45 AM Interpretation: Performing Lab:[facility], [address] [facility], Phone - [phone], Director - Sivan Notes/Report: AST (SGOT) 14 0-40 IU/L Creatinine, Serum Reviewed date:09/25/2023 01:54:54 PM Interpretation: Performing Lab:[facility], [address] [facility], Phone - [phone], [facility] Notes/Report: Creatinine 1.49 0.57-1.00 mg/dL eGFR 38 >59 mL/min/1.73 ALT (SGPT) Reviewed date:09/25/2023 10:24:45 AM Interpretation: Performing Lab:[facility], [address] [facility], Phone - [phone], Director - [facility] Notes/Report: ALT (SGPT) 12 0-32 IU/L CBC With Differential/Platel et Reviewed date:09/25/2023 10:24:45 AM Interpretation: Performing Lab:[facility] [place], [address] [facility], [place], Phone - [phone], Director - [facility] Notes/Report: WBC 5.9 3.4-10.8 x10E3/uL RBC 3.47 3.77-5.28 x10E6/uL Hemoglobin 11.2 11.1-15.9 g/dL Hematocrit 35.3 34.0-46.6 % MCV 102 79-97 fL MCH 32.3 26.6-33.0 pg MCHC 31.7 31.5-35.7 g/dL RDW 12.3 11.7-15.4 % Platelets 190 150-450 x10E3/uL Neutrophils 70 Not Estab. % Lymphs 17 Not Estab. % Monocytes 8 Not Estab. % Eos 4 Not Estab. % Basos 1 Not Estab. % Immature Cells Neutrophils (Absolute) 4.1 1.4-7.0 x10E3/uL Lymphs (Absolute) 1.0 0.7-3.1 x10E3/uL Monocytes(Absolute) 0.5 0.1-0.9 x10E3/uL Eos (Absolute) 0.2 0.0-0.4 x10E3/uL Baso (Absolute) 0.0 0.0-0.2 x10E3/uL Immature Granulocytes 0 Not Estab. % Immature Grans (Abs) 0.0 0.0-0.1 x10E3/uL NRBC Hematology Comments: CREATININE Reviewed date:01/09/2024 08:02:22 AM Interpretation: Performing Lab:[facility] FLOR[facility]-[id number], [id number] Kaylee Herrera MD Notes/Report: NON-FASTING; NON-FASTING; NON-FASTING; NON-FASTING FASTING:NO FASTING: NO CREATININE 1.30 0.60-1.00 mg/dL EGFR 44 > OR = 60 mL/min/1.73m2 AST Reviewed date:01/09/2024 08:02:22 AM Interpretation: Performing Lab:[facility] FLORES-[id number] [id number] Kaylee Herrera MD Notes/Report: NON-FASTING; NON-FASTING; NON-FASTING; NON-FASTING FASTING:NO FASTING: NO AST 17 10-35 U/L ALT Reviewed date:01/09/2024 08:02:22 AM Interpretation: Performing Lab:Andressa FLORES-[id number] Whit [id number] Kaylee Herrera MD Notes/Report: NON-FASTING; NON-FASTING; NON-FASTING; NON-FASTING FASTING:NO FASTING: NO ALT 12 6-29 U/L CBC (INCLUDES DIFF/PLT) Reviewed date:01/09/2024 08:02:22 AM Interpretation: Performing Lab:Andressa FLORES-[id number] Whit [id number] Kaylee Herrera MD Notes/Report: NON-FASTING; NON-FASTING; NON-FASTING; NON-FASTING FASTING:NO FASTING: NO WHITE BLOOD CELL COUNT 5.6 3.8-10.8 Thousand/ uL RED BLOOD CELL COUNT 3.85 3.80-5.10 Million/uL HEMOGLOBIN 12.7 11.7-15.5 g/dL HEMATOCRIT 40.1 35.0-45.0 % MCV 104.2 80.0-100.0 fL MCH 33.0 27.0-33.0 pg MCHC 31.7 32.0-36.0 g/dL For adults, a slight decrease in the calculated MCHC value (in the range of 30 to 32 g/dL) is most likely not clinically significant; however, it should be interpreted with caution in correlation with other red cell parameters and the patient's clinical condition. RDW 11.8 11.0-15.0 % PLATELET COUNT 242 140-400 Thousand/uL MPV 11.1 7.5-12.5 fL ABSOLUTE NEUTROPHILS 3696 1720-1234 cells/uL ABSOLUTE LYMPHOCYTES 3354 699-5716 cells/uL ABSOLUTE MONOCYTES 420 200-950 cells/uL ABSOLUTE EOSINOPHILS 190 15-500 cells/uL ABSOLUTE BASOPHILS 50 0-200 cells/uL NEUTROPHILS 66 LYMPHOCYTES 22.2 MONOCYTES 7.5 EOSINOPHILS 3.4 BASOPHILS 0.9 AST (SGOT) Reviewed date:04/05/2024 07:09:48 PM Interpretation: Performing Lab:[facility] [place], [address], [place], Phone - [phone], Director - [facility] Notes/Report: AST (SGOT) 16 0-40 IU/L Creatinine, Serum Reviewed date:04/05/2024 07:09:37 PM Interpretation: Performing Lab:[address], Phone - [phone], Director - [facility] Notes/Report: Creatinine 1.33 0.57-1.00 mg/dL eGFR 43 >59 mL/min/1.73 ALT (SGPT) Reviewed date:04/05/2024 07:09:33 PM Interpretation: Performing Lab:[address], Phone - [phone], Director - [facility] Notes/Report: ALT (SGPT) 11 0-32 IU/L CBC With Differential/Platel et Reviewed date:04/05/2024 07:09:46 PM Interpretation: Performing Lab:[address], Phone - [phone], [facility] Notes/Report: WBC 5.4 3.4-10.8 x10E3/uL RBC 3.55 [...] 0.0-0.1 x10E3/uL NRBC Hematology Comments: REASON FOR REFERRAL No Information MEDICATIONS Medication SIG (Take, Route, Frequency, Duration) Notes Start Date End Date Status HumAlejandra Bolton Acti ve Ozempic 2 mg/1.5 mL (0.25 mg or 0.5 mg dose) as directed subcutaneously once a week Active Lyrica 50 mg 1 cap(s) orally 2 ti mes a day Active atorvastatin 40 mg 1 tab(s) orally once a day Active PreserVision AREDS 2 Active Vitamin D3 1000 intl units 1 tab(s) orally once a day Active multivitamin 1 tab(s) daily Ac tive Synthroid 150 mcg (0.15 mg) 1 tab(s) orally once a day Active sertraline 100 mg 1 tab(s) orally once a day Active lisinopril 5 mg 1 tab(s) orally once a day Active Tylenol prn Not-Taking amlodipine besylate 5 mg one a a day Active solifenacin 5 mg 1 tab(s) orally once a day Active leflunomide 20 mg 1 tab(s) orally once a day Not-Taking leflunomide 20 mg 1 tab(s) orally once a day Active Tylenol [facility] Extended Release Active SOCIAL HISTORY Tobacco Use: Social History Observation Description Date Details (start date - stop date) Never Smoker NA - NA Sex Assigned At : Social History Observation Description Sex Assigned At Unknown Tobacco Use: Question Answer Notes Smoking Status nonsmoker PROBLEMS Problem Type ICD Code Onset Dates Problem Status W/U Status Risk SNOMED Code Notes Problem Other half-way (current) drug therapy (Z79.899) Active confirmed 870379909 Problem Rheumatoid arthritis of multiple sites without rheumatoid factor (M06.09) Active confirmed 333711242 Problem Essential (primary) hypertension (I10) Active confirmed 43870622 Problem Myalgia (M79.1) Active confirmed 622869 01 Problem Primary generalized (osteo)arthritis (M15.0) Active confirmed 155861986 Problem Fatigue, unspecified type (R53.83) Active confirmed 07812730 Problem Chronic renal impairment, unspecified CKD stage (N18.9) Active confirmed 342942030 VITAL SIGNS Heart Rate 77 /min 04/03/2024 Blood pressure diastolic 66 mm Hg 04/03/2024 Height 68 in 04/03/2024 Blood pressure systolic 135 mm Hg 04/03/2024 Weight 268 lbs 04/03/2024 BMI 40.74 kg/m2 04/03/2024 Encounters Encounter Location Date Provider Diagnosis [facility], [address] [place], [place] [id number] 09/24/2023 Kelle Storey Other joint terminal attack controller (current) drug therapy Z79.899 ; 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.09 and Primary generalized (osteo)arthritis M15.0 [facility] [address] [place] [address], [address] [id number] 03/09/2024 Summer Wilson Other half-way (current) drug therapy Z79.899 ; 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.09 and Primary generalized (osteo)arthritis M15.0 [facility] [address] [place] [address], [facility] [address] [place], [place] [id number] 04/03/2024 Summer Wilson Other half-way (current) drug therapy Z79.899 ; 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.09 and Primary generalized (osteo)arthritis M15.0 [facility] [address] [place] [address], [address] [id number] 03/05/2024 Summer Wilson ASSESSMENTS Encounter Date Diagnosis Assessment Notes Treatment Notes Treatment Clinical Notes 09/24/2023 Other half-way (current) drug therapy (ICD-10 - Z79.899) 09/24/2023 Rheumatoid arthritis of multiple sites without rheumatoid factor (ICD-10 - M06.09) 03/09/2024 Other half-way (current) drug therapy (ICD-10 - Z79.899) 03/09/2024 Rheumatoid arthritis of multiple sites without rheumatoid factor (ICD-10 - M06.09) 04/03/2024 Other joint terminal attack controller (current) drug therapy (ICD-10 - Z79.899) 04/03/2024 Rheumatoid arthritis of multiple sites without rheumatoid factor (ICD-10 - M06.09) 09/24/2023 Primary generalized (osteo)arthritis (ICD-10 - M15.0) 03/09/2024 Primary generalized (osteo)arthritis (ICD-10 - M15.0) 04/03/2024 Primary generalized (osteo)arthritis (ICD-10 - M15.0) PLAN OF TREATMENT Pending Test Test Name Order Date AST (SGOT) 11/14/2021 Creatinine, Serum 11/14/2021 ALT (SGPT) 11/14/2021 CBC With Differential/Platelet 2 CBC With Differential/Platelet 3 Comp. Metabolic Panel (14) 07/19/2022 CBC (IH) 01/29/2018 AST (IH) 11/08/2020 ALT (IH) 11/08/2020 Creatinine (IH) 11/08/2020 X ray : Hand left- outside order 018 X ray : Hand right- outside order 2017 Lab slip given 06/26/2019 lab slip given 07/19/2022 lab slip given 11/14/2021 CREATININE 07/08/2019 22486 09/24/2023 Future Test Test Name Order Date AST (SGOT) 03/28/2019 Creatinine, Serum 03/28/2019 ALT (SGPT) 03/28/2019 CBC With Differential/Platelet 0 Creatinine, Serum 01/04/2022 CBC With Differential/Platelet 2 AST (SGOT) 06/25/2023 Creatinine, Serum 06/25/2023 ALT (SGPT) 06/25/2023 CBC With Differential/Platelet 4 Lab slip given 06/25/2023 AST (SGOT) 12/25/2023 Creatinine, Serum 12/25/2023 ALT (SGPT) 12/25/2023 CBC With Differential/Platelet 4 AST (SGOT) 07/01/2024 Creatinine, Serum 07/01/2024 ALT (SGPT) 07/01/2024 CBC With Differential/Platelet 5 Next Appt Details Provider Name:Kelle cazares, 10/01/2024 10:20:00 AM, [address] [facility], [address], [place], [place], [id number], Insurance Providers Payer Name Payer Address Payer Phone Subscriber Number Group Number Insured Name Patient Relationship to Insured Coverage Start Date Coverage End Date MEDICARE [address] [address] [place] [phone] [id number] Hortencia Sherman Self - patient is the insured 8 [employer] [address] ZABRINA HERNANDEZ [address] [id number] PLAN F Hortencia Sherman Self - patient is the insured 8 MEDICAL (GENERAL) HISTORY Medical History History ICD Code diabetes anemia depression thyroid disease swelling of ankles/feet Lack of bladder control high blood pressure varicose veins irritable bowel syndrome kidney infection Surgical History Surgery Date(Month/Year) Cataracts appendectomy gallbladder surgery right shoulder carpal tunnel right hand trigger finger right hand released trigger thumb released bilateral knees scoped then replaced hysterectomy 1999 Ovarian Ectopic Tubal Ligation Hospitalization History Reason Date(Month/Year) right ankle sprain & achilles 2018 metatarsal bone 2017 great toe collarbone
--- OUTSIDE RECORDS SUMMARY | 2024-04-24 13:40 | XMS_ITS | Continuity of Care Document ---
Author Organization [facility] Address [address] [address] [place] [address] Phone Care Team Providers Care Lacquer Sizer Name Role Phone Aubrey Hutchison MD Unavailable [...] Providers Copied on Encounter [facility], [address], [address], [place] tel:[phone] [facility] [place] Trigger ring finger of right hand Fe- 9 Foster Burgos. [address] [place], [place], [id number] . tel: [phone] [facility], [address], [address], [place] tel:[phone] [facility] [place] Trigger finger of right thumbBody mass index (BMI) 39.0-39.9, adultOther specified diabetes mellitus with unspecified complications 8 Foster Burgos. [address] [place], [place], [id number] . tel: [phone] [facility], [address], [address], [place] tel:[phone] [facility] [place] Aftercare following surgery of the musculoskeletal system 7 Foster Burgos. [address] [place], [place], [id number] . tel: [phone] [facility], [address], [place], [address], [place] tel:[phone] [facility] [place] Aftercare following surgery of the musculoskeletal system Apr-2 7 Foster Burgos. [address] [place], [place], [id number] . tel: [phone] [facility], [address], [place], [address], [place] tel:[phone] [facility] [place] Trigger finger, right middle fingerTrigger ring finger of right hand Mar-3 0 7 Foster Burgos. [address] [place], [place], [id number] . tel: [phone] [facility], [address], [place], [address], [place] tel:[phone] [facility] [place] Carpal tunnel syndrome of left wristPain of right handTrigger finger, right middle finger Nov-0 201 6 Foster Burgos. [address] [place], [place], [address] . tel: [phone] [facility], [address], [place], [address], [place] tel:[phone] [facility] [place] Pain in right handTrigger finger, right middle finger Sep-2 201 6 Foster Burgos. [address] [place], [place], [id number] . tel: [phone] [facility], [address], [place], [address], [place] tel:[phone] [facility] [place] Aftercare following surgery of the musculoskeletal system, necPain in joint involving hand Nov-1 3-201 4 Foster Burgos. [address] [place], [place], [address] . tel: [phone] [facility], [address] [facility] [address], [place], [address], [place] tel:[phone] [facility] [place] No Information 4 Foster Burgos. [address] [place], [place], [id number] . tel: [phone] [facility], [address] [facility] [address] [place] [address], [address], [place] tel:[phone] [facility] [place] Aftercare following surgery of the musculoskeletal system, [facility] 4 Foster Burgos. [address] [place], [place], [id number] . tel: [phone] [facility], [address] [facility] [address] [place] [address], [address], [place] tel:[phone] [facility] [place] Carpal Tunnel Syndrome 4 Foster Burgos. [address] [place], [place], [id number] . tel: [phone] [facility], [address] [facility], [place], [address], [place] tel:[phone] [facility] Sprain of other specified sites of hip and thigh 2 Yuliya Castellanos. [address] [facility] [address], [place], [place], [id number] . tel: [phone] Referring Provider: Carmenza Roberts, [address], [place], [address]. tel:[phone] [facility], [address] [facility], [place], [address], [place] tel:[phone] [facility] No Information 2 Talya Gutierrez. [address] [facility], [place], [place], [id number] . tel: [phone] Referring Provider: Carmenza Roberts, [address], [place], [address]. tel:[phone] Family History Family Member Type Diagnosis Age [...] is Payers Payer name Insurance type Covered constitution party ID Authoriza tion(s) No Information Social History [...]
--- NOTE | 2024-04-24 13:42 | ED_ITS ---
HPI - URI/Sore Throat General Chief Complaint: Upper Respiratory Infection Stated Complaint: Fever/Chills/Cough/Headace Time Seen by Provider: 04/24/24 13:31 Source: patient Mode of arrival: ambulatory Limitations: no limitations History of Present Illness HPI Narrative: Patient is a 73-year-old female who presents with 1 week of sinus congestion, cough, fever, chills, runny nose. Symptoms worsened the last 3-4 days. Known exposure to fluid in the family. Taking NyQuil with no relief. Related Data Home Medications ?Medication ?Instructions ?Recorded ?Confirmed ?Last Taken ?Type atorvastatin 40 mg tablet 40 mg PO DAILY 05/30/21 02/10/24 Unknown History cholecalciferol (vitamin D3) 50 50 mcg PO DAILY 05/30/21 02/10/24 Unknown History mcg (2,000 unit) capsule leflunomide 20 mg tablet 20 mg PO DAILY 05/30/21 02/10/24 Unknown History multivitamin with iron 1 tablet PO DAILY 05/30/21 02/10/24 Unknown History vit C 250 mg-vit E 90 mg-zinc 40 1 tablet PO BID 06/08/21 02/10/24 Unknown History mg-copper 1 [id number] capsule (PreserVision AREDS-2) acetaminophen 650 mg 650 mg PO Q8H PRN Pain 08/21/22 02/10/24 Unknown History tablet,extended release (Tylenol Arthritis Pain) ferrous sulfate 325 mg (65 mg 325 mg PO DAILY 12/26/22 02/10/24 Unknown History iron) tablet (Feosol) lisinopril 10 mg tablet 10 mg PO DAILY 03/06/24 03/18/24 Unknown History mecobalamin (vitamin B12) 10,000 1,000 mcg IM MONTHLY 03/06/24 03/18/24 03/18/24 History mcg solution for injection Allergies Allergy/AdvReac Type Severity Reaction Status Date / Time cefuroxime (From Ceftin) Allergy Severe Itching Verified 04/15/24 13:55 meperidine Allergy Unknown Unknown Verified 04/15/24 13:55 Penicillins Allergy Unknown Unknown Verified 04/15/24 13:55 Sulfa (Sulfonamide Allergy Unknown unknown Verified 04/15/24 13:55 Antibiotics) SULFAMERAZINE (Generic Allergy unknown Uncoded 04/15/24 13:55 Allergy) Review of Systems Review of Systems: All systems reviewed & are unremarkable except as noted in HPI and below Constitutional: Constitutional: Reports chills, Denies fatigue, Reports fever(s), Denies headache(s), Denies malaise and Denies weakness Eyes: Eyes: Denies blurry vision, Denies itchy eyes and Denies loss of vision ENT: Denies otalgia, Denies headache(s), Reports nasal congestion, Denies sinus pain, Reports sinus pressure and Denies sore throat Cardiovascular: Cardiovascular: Denies chest pain, Denies irregular heart rhythm and Denies dyspnea Respiratory: Respiratory: Reports cough and Denies dyspnea Gastrointestinal: Gastrointestinal: Denies abdominal pain, Denies diarrhea, Denies nausea and Denies vomiting Musculoskeletal: Musculoskeletal: Denies back pain, Denies myalgias and Denies arthralgias Integumentary/Breasts: Skin/Breast: Denies pruritus and Denies rash Neurologic: Denies headache(s), Denies loss of vision and Denies weakness Psychiatric: Psychiatric: Reports no additional psychiatric complaints Endocrine: Endocrine: Denies fatigue Allergic/Immunologic: Allergic/Immunologic: Denies itchy eyes PMFSH Past Medical History Medical History Type 2 diabetes mellitus Vitamin B12 deficiency Foot pain, left Fall from other slipping, tripping, or stumbling Closed nondisplaced fracture of fifth metatarsal bone of right foot Closed displaced fracture of fifth metatarsal bone of left foot Body mass index [BMI] 40.0-44.9, adult (11/14/16) Anemia Hypothyroidism Lumbago Sciatic nerve pain Hyperlipemia Hypertension Aftercare following right shoulder joint replacement surgery Trigger thumb Ectopic ovary Carpal tunnel syndrome on right Cataracts, both eyes Surgical History Surgical History History of bilateral knee replacement History of bilateral tubal ligation History of appendectomy Hx of cholecystectomy H/O total hysterectomy (~1999) Family History Family History Father Diabetes mellitus Heart disease Hypertension Cerebrovascular accident Mother Depression Hypertension Heart disease Sibling Diabetes mellitus Hypertension Heart disease Social History Social History Smoking status: Never smoker Second hand tobacco smoke exposure: No Alcohol intake: current Alcohol use details: socially Substance use: never Substance use type: does not use Lack of Transportation: No Lack of Food: Never True Current Housing: I Have Housing Concerned About Future Housing: No Difficulty Paying Gas/Electric Bills: No Difficulty Paying for Meds: No Currently Unemployed: No Education: High School Diploma/GED Difficulty w/ Childcare or Family Care: No Living arrangements: alone Occupation/Education: retired Gender identity (if verbalized by the patient): Female Spiritual care concerns: No Comments At time of signature, agree with nursing past medical, surgical, social and family history. There is no relevant family history pertinent to the presenting complaint. Exam Const: General: cooperative, healthy appearing, comfortable, no acute distress and well nourished Nutritional Appearance: well nourished Orientation/consciousness: patient oriented x3 Limitations: no limitations HENMT: Head: normal to inspection, normocephalic and atraumatic Ears: hearing grossly normal bilaterally, external ears normal, TM's normal bilaterally, EAC's normal and no periauricular adenopathy Face/Nose/Sinus: Normal external nose present, Abnormal mucous membranes and turbinates present erythematous bilateral and diffuse, normal facial exam, sinuses nontender and face symmetric Face and sinus: normal facial exam, sinuses nontender and face symmetric Mouth: Yes Normal oral and palatal mucosa present, Yes lip normal, Yes tongue normal, Yes Normal salivary glands and ducts present, Yes oropharynx normal and Yes moist mucous membranes Teeth and gingiva: dentition normal Throat: posterior oropharynx normal, tonsils normal and uvula midline Eyes: General: appearance normal, both eyes and all related structures Alignment and Position: alignment normal and position normal Periorbital: periorbital findings normal Eyelids: eyelids normal Pupils: Equal, round and reactive pupils present Neck: Neck: normal visual inspection, full ROM, no lymphadenopathy and supple Chest: Chest palpation & inspection: normal inspection of the chest and normal palpation of entire chest wall Resp: Effort & Inspection: normal respiratory effort and able to speak in complete sentences Auscultation: clear to auscultation bilaterally, no crackles, no rales, no rhonchi and no wheezes Cardio: Rate: regular rate Rhythm: regular rhythm Heart sounds: S1 normal heart sound present and S2 normal heart sound present GI: Inspection: normal to inspection Skin: General skin exam: normal color and no rashes or lesions noted Neuro: General: patient oriented x3 and moves all extremities Cranial nerves: Yes Equal, round and reactive pupils present Speech: normal speech Gait exam (Neuro): Normal gait present Extrem: General: normal to inspection, full ROM and no edema Psych: Appearance: grossly normal and well kempt Mental Status: mental status grossly normal Speech and movement: Normal speech and movement present Affect: normal affect Attitude: cooperative Thought process: Normal thought process present Course Course Emergency Course: Discharge instructions reviewed with patient, as well as provided in writing per nursing staff. The instructions also include specific and strict return/GO TO THE ER as well as f/u information. All questions have been answered, and the patient deny any further questions with discharge and discharge plan. Portions of this record may have been created with voice recognition software Level of Care: Express Care Visit Vital Signs Vital signs: Vital Signs Temperature 37.3 C 04/24/24 13:36 Pulse Rate 91 04/24/24 13:36 Respiratory Rate 20 04/24/24 13:36 Blood Pressure 153/50 H 04/24/24 13:36 Pulse Oximetry 96 04/24/24 13:36 Oxygen Delivery Room Air 04/24/24 13:36 Temperature 37.3 C 04/24/24 13:36 Pulse Rate 91 04/24/24 13:36 Respiratory Rate 20 04/24/24 13:36 Blood Pressure 153/50 H 04/24/24 13:36 Pulse Oximetry 96 04/24/24 13:36 Oxygen Delivery Room Air 04/24/24 13:36 Reviewed MDM - URI/Sore Throat MDM Narrative Medical decision making narrative: Pt well hydrated appearing, in no respiratory distress, hemodynamically stable. Recommend supportive care. The patient is stable at time of discharge the clinical impression was discussed and the patient was given the opportunity to ask questions, which were addressed as completely as possible given the information available at present. Anticipatory guidance and return to care precautions were discussed and the importance of primary care follow-up was stressed and encouraged. The patient voiced understanding of the plan, indications to return, and the need for follow-up. Differential diagnosis considered: Bronchitis, Rodriguez virus, strep pharyngitis, allergic rhinitis, upper respiratory tract infection, sinusitis, rhinosinusitis, nasopharyngitis. viral pharyngitis, otitis media, otitis externa, otitis effusion, foreign body, cerumen impaction, viral syndrome, and influenza.? Exam findings show no acute concerns or changes; patient is non-toxic appearing and is in no distress.? Patient is appropriate for outpatient treatment and follow- up.? Medical Records Attestation: I reviewed the patient's medical records. Lab Data Attestation: I reviewed the patient's lab results. Labs: Lab Results 04/24/24 Range/Units 13:50 POC Influenza A Ag Positive (Negative) POC Influenza B Ag Negative (Negative) POC SARS CoV-2 Ag Negative (Negative) Discharge Plan Discharge Clinical Impression: Influenza Patient Disposition: Home, Self-Care Condition: Stable Instructions: Influenza (ED) Additional Instructions: Were positive for influenza A. Your Covid is negative Your symptoms are due to a viral illness, which is not treated with antibiotics. Viral symptoms can be present for up to a few weeks. -For fever/pain, you may take: Tylenol 650-1000mg by mouth every 4-6 hours. Do not exceed 4000mg in 24 hours. Advil (Ibuprofen) 600 mg by mouth every 6 hours. Do not exceed 2400mg in 24 hours. 8 AM: Tylenol 11 AM: Ibuprofen 2 PM: Tylenol 5 PM: Ibuprofen 8 PM: Tylenol 11 PM: Ibuprofen 2 AM: Tylenol 5 AM: Ibuprofen -Antihistamine medication such as Benadryl/Zyrtec at night and Claritin/Lois during the day can help improve symptoms. -Use Flonase twice a day for 5 days then daily to help reduce the inflammation and dry up your sinuses. -You can also use Sudafed behind the pharmacy counter(12 or 24 hour). Be sure to drink plenty of water with these medications at least 8 ounces with every dose and it is important to drink 8 to 10 glasses of water per day. Water is a natural decongestant -Eat and drink things that are easy to swallow, like tea or soup, or popsicles. -Oral rinses such as: Salt water gargles and/or may use topical anesthetic (eg. Chloraseptic spray) or lozenges to relieve dryness or throat pain). -Frequent hand washing or hand senior care specialist is one of the best ways to prevent spread of infection. -Using a vaporizer or humidifier at night will also help thin secretions and help with coughing up phlegm. -Follow up with primary care provider in 3-5 days if condition is not improving - For new or worsening symptoms go directly to the nearest ER Your blood pressure was elevated above 120/80 today at Urgent Care. This puts you above the threshold for follow up visit with a primary care provider. High blood pressure does not usually cause any symptoms, however it may lead to kidney failure, stroke, heart disease just to name a few if untreated . Many people are anxious when seeing a provider or nurse. As a result, you are not diagnosed with hypertension at this time unless your blood pressure is persistently high at two office visits at least one week apart. Some things that can help lower blood pressure are lifestyle modifications, such as light exercise, decreased salt in diet, and weight loss. It is important to follow up with a PCP about this within 1 week. Patient Language: Maltese Prescriptions: New benzonatate 100 mg capsule 100 mg PO BID PRN (Reason: cough) Qty: 14 0RF fluticasone propionate [Flonase Allergy Relief] 50 mcg/actuation sp ray,suspension 1 spray intranasal DAILY Qty: 16 0RF Rx Instructions: administer into each nostril No Action mecobalamin (vitamin B12) 10,000 mcg recon soln 1,000 mcg IM MONTHLY PreserVision AREDS-2 250-90-40-1 mg capsule 1 tablet PO BID acetaminophen [Tylenol Arthritis Pain] 650 mg tablet extended release 650 mg PO Q8H PRN (Reason: Pain) Patient Comments: ..... ferrous sulfate [Feosol] 325 mg (65 mg iron) tablet 325 mg PO DAILY sertraline 100 mg tablet 100 mg PO DAILY Qty: 90 1RF Gvoke PFS 2-Pack Syringe 1 mg/0.2 mL syringe 1 mg subcut Q20M PRN (Reason: hypoglycemia) Qty: 0.4 0RF Rx Instructions: until target blood sugar attained lisinopril 10 mg tablet 10 mg PO DAILY Kerendia 10 mg tablet 10 mg PO DAILY Qty: 90 0RF atorvastatin 40 mg tablet 40 mg PO DAILY leflunomide 20 mg tablet 20 mg PO DAILY cholecalciferol (vitamin D3) 50 mcg (2,000 unit) capsule 50 mcg PO DAILY multivitamin with iron Tablet 1 tablet PO DAILY amlodipine 10 mg tablet 10 mg PO DAILY Qty: 90 1RF solifenacin 5 mg tablet 5 mg PO BID Qty: 180 1RF Ozempic 2 mg/dose (8 mg/3 mL) pen injector See Rx Instructions .ROUTE .COMPLEX Qty: 9 3RF Dose Instruction: INJECT 2 MG UNDER THE SKIN WEEKLY Rx Instructions: INJECT 2 MG UNDER THE SKIN WEEKLY dapagliflozin propanediol [Farxiga] 10 mg tablet See Rx Instructions .ROUTE .COMPLEX Qty: 90 3RF Dose Instruction: TAKE 1 TABLET DAILY Rx Instructions: TAKE 1 TABLET DAILY insulin glargine [Lantus Solostar U-100 Insulin] 100 unit/mL (3 mL) insulin pen See Rx Instructions .ROUTE .COMPLEX Qty: 30 3RF Dose Instruction: INJECT 34 UNITS UNDER THE SKIN EVERY MORNING DAILY Rx Instructions: INJECT 34 UNITS UNDER THE SKIN EVERY MORNING DAILY levothyroxine 150 mcg tablet See Rx Instructions .ROUTE .COMPLEX Qty: 104 3RF Dose Instruction: TAKE 1 TABLET DAILY, 2 TABLET ON SATURDAY Rx Instructions: TAKE 1 TABLET DAILY, 2 TABLET ON SATURDAY insulin lispro [Humalog KwikPen Insulin] 100 unit/mL insulin pen See Rx Instructions .ROUTE .COMPLEX Qty: 30 5RF Dose Instruction: INJECT 6 UNITS UNDER THE SKIN THREE TIMES A DAY BEFORE MEALS ONLY (MAXIMUM DAILY DOSE IS 50 UNITS) Rx Instructions: INJECT 6 UNITS UNDER THE SKIN THREE TIMES A DAY BEFORE MEALS ONLY (MAXIMUM DAILY DOSE IS 50 UNITS) Follow-up/Referrals: Debora Hill DO [Physician] - 3 Days Time of Disposition: 14:13
[2024-04-24 13:51] LABS: EDCOVIDSCREEN Negative (Negative); EDINFLUASCREEN Positive (Negative); EDINFLUBSCREEN Negative (Negative)
== END 2024-04-24 14:19 | disposition home or self-care (01) ==
PROVIDERS: Emergency Provider Nurse Practitioner Family
DX: J11.1 Influenza due to unidentified influenza virus with other respiratory manifestations (principal); E11.9 Type 2 diabetes mellitus without complications; E03.9 Hypothyroidism, unspecified; Z20.822 Contact with and (suspected) exposure to COVID-19
CPT/HCPCS: 87426; 87804; 99213; G0463